=== PATIENT | male | born 1960 | race African-American/Black ===

== ENCOUNTER 2018-03-21 11:36 | Inpatient (IN) | payer OTHER ==
[2018-03-21 11:59] VITALS: BMI 29.0
--- NOTE | 2018-03-21 13:45 | HP ---
COWS - Scale Resting Pulse: 0= [place] 80 or Below Sweatin= No chills or Flushing Restless Observation: 0= Sits Still Pupil Size: 0= Normal to Room Light Bone or Joint Aches: 1= Mild Discomfort Runny Nose/ Eye Tearin= None GI Upset > 30mins: 0= None Tremor Observation: 1= Tremor [place], Not Seen Yawning Observation: 0= None Anxiety or Irritability: 2=Irritable/Anxious Goose Flesh Skin: 0=Smooth Skin COWS Score: 4 CIWA Score - CIWA Score Nausea/Vomitin-No Nausea/No Vomiting Muscle Tremors: None Anxiety: 4-Mod. Anxious/Guarded Agitation: 1-Slight > Activity Paroxysmal Sweats: No Perspiration Orientation: 0-Oriented Tacttile Disturbances: 0-None Auditory Disturbances: 0-None Visual Disturbances: 0-None Headache: 0-None Present CIWA-Ar Total Score: 5 Admission ROS [facility] - HPI Allergies/Adverse Reactions: Allergies Allergy/AdvReac Type Severity Reaction Status Date / Time Pork/Porcine Containing Allergy Severe Hives Verified 03/21/18 15:29 Products NKDA Allergy Uncoded 03/21/18 15:29 History of Present Illness: patient here requesting detox from etoh crack cocaine, pcpc, heroin etoh use : 2 pints/day vodka , since 1975 , prior episodes of sobriety 3 1/2 years , denies seizure h/o cocaine since age 19 , current daily use 200-300 $ /day , intermittent periods of sobriety PCP since age 36 , 2-3 bags /day heroin use : 1-2 bags/day since age 56 via inhalation , denies ivdu latest use yesterday morning . 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 lives alone utox + freddie , opi, bzo denies recent benzo use , latest detox 1 yr ago pmhx : chronic knee pain , htn , left ankle frx 1 yr ago , had a soft cast psych : bipolar d/o , mood d/o, anxiety , depression, SAD - has own psychiatrist at [facility] in [place] pshx : denies meds : motrin, lithium , depakote Exam Limitations: Physical Impairment - Ebola screening Have you traveled outside of the country in the last 21 days: No Have you had contact with anyone from an Ebola affected area: No Have you been sick,other than usual withdrawal symptoms: No Do you have a fever: No - Review of Systems Constitutional: No Symptoms Reported, Other EENT: reports: No Symptoms Reported Respiratory: reports: No Symptoms reported Cardiac: reports: No Symptoms Reported GI: reports: No Symptoms Reported : reports: No Symptoms Reported Musculoskeletal: reports: Joint Pain, Joint Swelling, Joint Stiffness Integumentary: reports: No Symptoms Reported Neuro: reports: Unsteady Gait, Dizziness, Other (fatigue) Endocrine: reports: No Symptoms Reported Psychiatric: reports: Judgement Intact, Orientated x3, Depressed, other (see HPI ) Other Systems: Reviewed and Negative Patient History - Smoking Cessation Smoking history: Current some day smoker Initiated information on smoking cessation: Yes 'Breaking Loose' booklet given: 03/21/18 - Substances Abused Heroin Route: Inhalation Frequency: Daily Amount used: 2-3 bags Age of first use: 56 Date of Last Use: 03/20/18 Cocaine Route: Smoking Frequency: Daily Amount used: $300-400 Age of first use: 19 Date of Last Use: 03/19/18 PCP Route: Smoking Frequency: Daily Amount used: $30 Age of first use: 36 Date of Last Use: 03/21/18 Alcohol-vodka Route: Oral Frequency: Daily Amount used: 2 pts. Age of first use: 14 Date of Last Use: 03/21/18 Family Disease History - Family Disease History Family Disease History: Diabetes: Father, Other: Mother (htn ), Sister (jordy ) Admission Physical Exam [facility] - Vital Signs Vital Signs: Vital Signs - 24 hr 03/21/18 11:56 Temperature 98.4 F Pulse Rate 65 Respiratory 20 Rate Blood Pressure 140/83 - Physical General Appearance: Yes: No Apparent Distress, Nourished, Appropriately Dressed , Mild Distress HEENTM: Yes: Within Normal Limits, EOMI, Hearing grossly Normal, Normal ENT Inspection, Normocephalic, Normal Voice, ERIC, Pharynx Normal, Tm's normal Respiratory: Yes: Within Normal Limits, Chest Non-Tender, Lungs Clear, Decreased Breath Sounds, No Respiratory Distress, No Accessory Muscle Use Cardiology: Yes: Within Normal Limits, Regular Rhythm, Regular Rate Abdominal: Yes: Within Normal Limits, Normal Bowel Sounds, Non Tender, Flat, Soft Musculoskeletal: Yes: Joint Stiffness, Other (gait antalgic, / unsteady , using cane for ambulation / balance , chronic knee pain) Extremities: Yes: Pedal Edema, Other (decreased AROM jonas knees) Neurological: Yes: Fully Oriented, Alert, Motor Strength 5/5, Depressed Affect Integumentary: Yes: Other (non- pitting edema jonas LE to knees) Cleared for Admission [facility] - Detox or Rehab [facility] Level of Care: Medically Managed Detox Regimen/Protocol: Methadone/Librium [facility] Breath Alcohol Content Breath Alcohol Content: 0 Urine Drug Screen - Results Drug Screen Negative: No Urine Drug Screen Results: FREDDIE-Cocaine, OPI-Opiates, BZO-Benzodiazepines
[2018-03-21] MEDS ORDERED: MAG HYDROX/AL HYDROX/SIMETH 30 ML UNIT-DOSE CUP PO PRN (14:04)
[2018-03-21] MEDS ORDERED: ACETAMINOPHEN 325 MG TABLET (FP) PO PRN (14:04)
[2018-03-21] MEDS ORDERED: MAGNESIUM CITRATE 300 ML BOTTLE PO PRN (14:04)
[2018-03-21] MEDS ORDERED: MAGNESIUM HYDROX 2400MG/30ML ORAL SUSPENSION 30 ML CUP PO PRN (14:04)
[2018-03-21] MEDS ORDERED: IBUPROFEN 400 MG TABLET (FP) PO PRN (14:04)
[2018-03-21] MEDS ORDERED: hydrOXYzine PAMOATE 25 MG CAPSULE (FP) PO PRN (15:10)
[2018-03-21] MEDS ORDERED: METHADONE HCL 10 MG TABLET (FOR DETOX USE ONLY) PO ONE (16:30)
[2018-03-21] MEDS ORDERED: chlordiazePOXIDE HCL 25 MG CAPSULE PO SCH (17:00)
[2018-03-21] MEDS ORDERED: chlordiazePOXIDE HCL 25 MG CAPSULE PO PRN (19:39)
[2018-03-21] MEDS ORDERED: MELATONIN 5 MG TABLETS PO PRN (22:00)
[2018-03-21] MEDS: THIAMINE HCL 100 MG TABLET (FP) PO SCH (22:24)
[2018-03-21] MEDS: chlordiazePOXIDE HCL 25 MG CAPSULE PO SCH (22:24)
[2018-03-22] MEDS: chlordiazePOXIDE HCL 25 MG CAPSULE PO SCH ×5 (00:19→22:27)
[2018-03-22 03:40] LABS: URINE APPEARANCE SLCLOUDY; URINE BILIRUBIN NEGATIVE (<2.0 mg/dL); URINE COLOR YELLOW; URINE GLUCOSE (UA) NEGATIVE (NEGATIVE); URINE KETONE NEGATIVE (NEGATIVE); URINE LEUK ESTERASE TRACE (NEGATIVE); URINE NITRITE NEGATIVE (NEGATIVE); URINE PROTEIN NEGATIVE (NEGATIVE)
[2018-03-22 03:55] LABS: EPI CELLS RARE /HPF (FEW); URINE MUCUS FEW
--- NOTE | 2018-03-22 08:01 | EKG ---
Test Reason : Blood Pressure : / mmHG Vent. Rate : 082 BPM Atrial Rate : 082 BPM P-R Int : 136 ms QRS Dur : 080 ms QT Int : 340 ms P-R-T Axes : 052 027 054 degrees QTc Int : 397 ms NORMAL SINUS RHYTHM NONSPECIFIC T WAVE ABNORMALITY ABNORMAL ECG NO PREVIOUS ECGS AVAILABLE Confirmed by PATRICE ELLIOTT MD ([id number]) on 03/22/2018 8:00:55 AM Referred By: Confirmed By:PATRICE ELLIOTT MD
[2018-03-22] MEDS ORDERED: METHADONE HCL 10 MG TABLET (FOR DETOX USE ONLY) PO SCH (10:00)
[2018-03-22 10:19] LABS: HEMOGLOBIN 12.4 GM/dL (11.7-16.9); MCH 27.9 pg (25.7-33.7); MCHC 32.6 g/dl (32.0-35.9); MEAN CELL VOLUME 85.6 fl (80-96); MEAN PLT VOLUME 9.7 fl (7.5-11.1); PLATELET COUNT 222 K/MM3 (134-434); RBC 4.44 M/mm3 (4.00-5.60); RDW 13.4 % (11.9-15.9); WHITE BLOOD COUNT 8.8 K/mm3 (4.0-10.0)
[2018-03-22] MEDS: PRENATAL VITAMINS W/ FOLIC ACID TABLET (FP) PO SCH (10:19)
[2018-03-22] MEDS: METHADONE HCL 5 MG TABLET (FOR DETOX USE ONLY) PO SCH (10:19)
[2018-03-22 10:27] LABS: ALBUMIN 3.5 g/dl (3.4-5.0); ALK PHOS 92 U/L (45-117); ANION GAP 8 MMOL/L (8-16); BILIRUBIN,TOTAL 0.4 mg/dL (0.2-1); BLOOD UREA NITROGEN 15 mg/dL (7-18); CALCIUM 9.6 mg/dL (8.5-10.1); CHLORIDE 105 mmol/L (98-107); CO2 27 mmol/L (21-32); CREATININE 0.9 mg/dL (0.55-1.3); GLUCOSE,RANDOM 86 mg/dL (74-106); POTASSIUM 4.4 mmol/L (3.5-5.1); SGOT/AST 31 U/L (15-37); SGPT/ALT 26 U/L (13-61); SODIUM 140 mmol/L (136-145); TOT PROT 7.7 g/dl (6.4-8.2)
--- NOTE | 2018-03-22 14:09 | PN ---
[facility] CIWA - CIWA Score Nausea/Vomitin-No Nausea/No Vomiting Muscle Tremors: 3 Anxiety: 5 Agitation: 3 Paroxysmal Sweats: 1-Minimal Palms Moist Orientation: 0-Oriented Tacttile Disturbances: 0-None Auditory Disturbances: 0-None Visual Disturbances: 0-None Headache: 0-None Present CIWA-Ar Total Score: 12 [facility] COWS - Scale Resting Pulse: 0= [place] 80 or Below Sweatin= Chills/Flushing Restless Observation: 3= Extraneous Movement Pupil Size: 0= Normal to Room Light Bone or Joint Aches: 1= Mild Discomfort Runny Nose/ Eye Tearin= None GI Upset > 30mins: 1= Stomach Cramp Tremor Observation of Outstretched Hands: 2= Slight Tremor Visible Yawning Observation: 1= 1-2x During Session Anxiety or Irritability: 2=Irritable/Anxious Goose Flesh Skin: 0=Smooth Skin COWS Score: 11 S Progress Note (SOAP) Subjective: ANXIETY, SWEATS, IRRITABILITY, UPSET STOMACH-DYSPEPSIA. Objective: 03/22/18 14:13 Vital Signs 03/22/18 03/22/18 06:21 10:22 Temperature 98.1 F 98.0 F Pulse Rate 64 75 Respiratory 20 18 Rate Blood Pressure 129/80 120/68 Laboratory Tests 03/21/18 03/22/18 03/22/18 23:18 06:00 06:00 WBC 8.8 RBC 4.44 Hgb 12.4 Hct 38.0 MCV 85.6 MCH 27.9 MCHC 32.6 RDW 13.4 Plt Count 222 MPV 9.7 Sodium 140 Potassium 4.4 Chloride 105 Carbon Dioxide 27 Anion Gap 8 BUN 15 Creatinine 0.9 Creat Clearance w eGFR > 60 Random Glucose 86 Calcium 9.6 Total Bilirubin 0.4 AST 31 ALT 26 Alkaline Phosphatase 92 Total Protein 7.7 Albumin 3.5 Urine Color Yellow Urine Appearance Slcloudy Urine pH 5.0 Ur Specific [place] 1.021 Urine Protein Negative Urine Glucose (UA) Negative Urine Ketones Negative Urine Blood Negative Urine Nitrite Negative Urine Bilirubin Negative Urine Urobilinogen 2.0 Ur Leukocyte Esterase Trace Urine WBC (Auto) 19 Urine RBC (Auto) 1 Ur Epithelial Cells Rare Urine Mucus Few LABS NOTED Assessment: 03/22/18 14:14 WITHDRAWAL SX Plan: CONTINUE DETOX
--- NOTE | 2018-03-22 17:02 | CONSULT ---
[facility] Psychiatric Consult - Data Date of interview: 03/22/18 Admission source: [facility] Identifying data: Readmission to [facility] for this 57 y/o AA male self- referred for detoxification treatment (alcohol,PCP,crack/cocaine,heroin dependence).Admitted to [address] [place] [address].Patient is. single,a father of five,domiciled and currently employed. Substance Abuse History: Confirmed by the patient in this interview.Details in current [facility] report : Smoking history: Current some day smoker. Initiated information on smoking cessation: Yes. 'Breaking Loose' booklet given: . - Substances Abused. Heroin. Route: Inhalation. Frequency: Daily. Amount used: 2-3 bags. Age of first use: 56. Date of Last Use: 03/20/18. Cocaine. Route: Smoking. Frequency: Daily. Amount used: $300-400. Age of first use: 19. Date of Last Use: 03/19/18. PCP. Route: Smoking. Frequency : Daily. Amount used: $30. Age of first use: 36. Date of Last Use: 03/21/18. Alcohol-vodka. Route: Oral. Frequency: Daily. Amount used: 2 pts. Age of first use: 14. Date of Last Use: 03/21/18 Medical History: Hypertension,chronic knee pain and past history of fracture of left ankle. A cane is noted at bedside. Psychiatric History: Patient reports a history of psychiatric hospitalizations.Years ago.No recall of names of institutions.Mr Pedraza indicates that he is currently seeing a psychiatrist, for medication management (depakote 1000 mg/day + lithium 900 mg/day), at the [facility] in [facility].Diagnosed with Bipolar Disorder.Patient denies history of suicide attempts. Physical/Sexual Abuse/Trauma History: Patient denies. Additional Comment: Urine Drug Screen Results: MILO-Cocaine, OPI-Opiates, BZO- Benzodiazepines.Noted. Mental Status Exam - Mental Status Exam Alert and Oriented to: Time, Place, Person Cognitive Function: Good Patient Appearance: Well Groomed Mood: Angry, Hostile, Withdrawn, Irritable Affect: Mood Congruent Patient Behavior: Fatigued, Cooperative (superficially cooperative) Speech Pattern: Clear Voice Loudness: Normal Thought Process: Goal Oriented Thought Disorder: Not Present Hallucinations: Denies Suicidal Ideation: Denies Homicidal Ideation: Denies Insight/Judgement: Poor Sleep: Poorly, Difficulty falling asleep Appetite: Good Muscle strength/Tone: Normal Gait/Station: Other (not observed ; in bed for entire interview ; cane is noted at bedside) Psychiatric Findings - Problem List ([place] 1, 2,3) (1) Alcohol dependence with uncomplicated withdrawal Current Visit: Yes Status: Acute (2) Cocaine dependence, uncomplicated Current Visit: Yes Status: Acute (3) Opioid dependence with withdrawal Current Visit: Yes Status: Acute (4) Substance induced mood disorder Current Visit: Yes Status: Acute (5) Nicotine dependence Current Visit: Yes Status: Acute (6) PCP dependence Current Visit: Yes Status: Acute Comment: Reported by the patient but toxicology screen is negative for that drug at time of this examination. (7) Bipolar disorder Current Visit: Yes Status: Chronic Comment: Self-report.On medications : valproate + lithium.Patient sees psychiatrist at [facility] in [facility]. (8) Insomnia Current Visit: Yes Status: Acute - Initial Treatment Plan Initial Treatment Plan: Psychoeducation.Sleep hygiene.Detoxification in progress.Group and supportive therapy.Medications : depakote 500 mg po hs.Side effects/benefits discussed with the patient.Insomnia is addressed with melatonin 5 mg po hs prn.[place] held until level becomes available.Medications confirmed by pharmacist at [facility] ([phone]) : refills for both medications issued on 02/20/18. Observation.
[2018-03-22] MEDS: THIAMINE HCL 100 MG TABLET (FP) PO SCH (22:26)
[2018-03-23] MEDS: chlordiazePOXIDE HCL 25 MG CAPSULE PO SCH ×2 (05:38→10:38)
[2018-03-23] MEDS: METHADONE HCL 5 MG TABLET (FOR DETOX USE ONLY) PO SCH (10:38)
[2018-03-23] MEDS: PRENATAL VITAMINS W/ FOLIC ACID TABLET (FP) PO SCH (10:38)
--- NOTE | 2018-03-23 11:08 | PN ---
[facility] CIWA - CIWA Score Nausea/Vomitin-No Nausea/No Vomiting Muscle Tremors: 3 Anxiety: 5 Agitation: 4-Moderately Restless Paroxysmal Sweats: No Perspiration Orientation: 0-Oriented Tacttile Disturbances: 0-None Auditory Disturbances: 0-None Visual Disturbances: 0-None Headache: 0-None Present CIWA-Ar Total Score: 12 S COWS - Scale Resting Pulse: 0= [place] 80 or Below Sweatin= Chills/Flushing Restless Observation: 3= Extraneous Movement Pupil Size: 0= Normal to Room Light Bone or Joint Aches: 0= None Runny Nose/ Eye Tearin= None GI Upset > 30mins: 0= None Tremor Observation of Outstretched Hands: 1= Tremor [place], Not Seen Yawning Observation: 0= None Anxiety or Irritability: 2=Irritable/Anxious Goose Flesh Skin: 0=Smooth Skin COWS Score: 7 S Progress Note (SOAP) Subjective: ANXIETY,IRRITABILITY, FATIGUE. Objective: 03/23/18 11:06 Vital Signs 03/23/18 03/23/18 03/23/18 03:30 06:04 09:14 Temperature 98.6 F 96.6 F L Pulse Rate 66 62 Respiratory 18 18 16 Rate Blood Pressure 119/75 107/58 L Laboratory Tests 03/21/18 03/22/18 03/22/18 23:18 06:00 06:00 WBC 8.8 RBC 4.44 Hgb 12.4 Hct 38.0 MCV 85.6 MCH 27.9 MCHC 32.6 RDW 13.4 Plt Count 222 MPV 9.7 Sodium 140 Potassium 4.4 Chloride 105 Carbon Dioxide 27 Anion Gap 8 BUN 15 Creatinine 0.9 Creat Clearance w eGFR > 60 Random Glucose 86 Calcium 9.6 Total Bilirubin 0.4 AST 31 ALT 26 Alkaline Phosphatase 92 Total Protein 7.7 Albumin 3.5 Urine Color Yellow Urine Appearance Slcloudy Urine pH 5.0 Ur Specific [place] 1.021 Urine Protein Negative Urine Glucose (UA) Negative Urine Ketones Negative Urine Blood Negative Urine Nitrite Negative Urine Bilirubin Negative Urine Urobilinogen 2.0 Ur Leukocyte Esterase Trace Urine WBC (Auto) 19 Urine RBC (Auto) 1 Ur Epithelial Cells Rare Urine Mucus Few RPR Titer 03/22/18 06:00 WBC RBC Hgb Hct MCV MCH MCHC RDW Plt Count MPV Sodium Potassium Chloride Carbon Dioxide Anion Gap BUN Creatinine Creat Clearance w eGFR Random Glucose Calcium Total Bilirubin AST ALT Alkaline Phosphatase Total Protein Albumin Urine Color Urine Appearance Urine pH Ur Specific [place] Urine Protein Urine Glucose (UA) Urine Ketones Urine Blood Urine Nitrite Urine Bilirubin Urine Urobilinogen Ur Leukocyte Esterase Urine WBC (Auto) Urine RBC (Auto) Ur Epithelial Cells Urine Mucus RPR Titer Nonreactive Assessment: 03/23/18 11:07 WITHDRAWAL SX Plan: CONTINUE DETOX REPEAT UA ON 03/22/18 UNCOLLECTED.
[2018-03-23] MEDS: chlordiazePOXIDE 5 MG CAPSULE PO SCH ×2 (17:57→22:05)
[2018-03-23] MEDS: THIAMINE HCL 100 MG TABLET (FP) PO SCH (22:05)
[2018-03-24] MEDS: chlordiazePOXIDE 5 MG CAPSULE PO SCH ×2 (05:17→10:50)
[2018-03-24] MEDS: PRENATAL VITAMINS W/ FOLIC ACID TABLET (FP) PO SCH (10:50)
--- NOTE | 2018-03-24 15:41 | PN ---
[facility] Progress Note (SOAP) Subjective: Chills, interrupted sleep Objective: 03/24/18 15:40 Last Vital Signs Temp Pulse Resp BP Pulse Ox 97.6 F 62 18 106/64 03/24/18 14:22 03/24/18 14:22 03/24/18 14:22 03/24/18 14:22 Laboratory Tests 03/21/18 03/22/18 03/22/18 23:18 06:00 06:00 WBC 8.8 RBC 4.44 Hgb 12.4 Hct 38.0 MCV 85.6 MCH 27.9 MCHC 32.6 RDW 13.4 Plt Count 222 MPV 9.7 Sodium 140 Potassium 4.4 Chloride 105 Carbon Dioxide 27 Anion Gap 8 BUN 15 Creatinine 0.9 Creat Clearance w eGFR > 60 Random Glucose 86 Calcium 9.6 Total Bilirubin 0.4 AST 31 ALT 26 Alkaline Phosphatase 92 Total Protein 7.7 Albumin 3.5 Urine Color Yellow Urine Appearance Slcloudy Urine pH 5.0 Ur Specific [place] 1.021 Urine Protein Negative Urine Glucose (UA) Negative Urine Ketones Negative Urine Blood Negative Urine Nitrite Negative Urine Bilirubin Negative Urine Urobilinogen 2.0 Ur Leukocyte Esterase Trace Urine WBC (Auto) 19 Urine RBC (Auto) 1 Ur Epithelial Cells Rare Urine Mucus Few Valproic Acid [place] RPR Titer 03/22/18 03/23/18 03/23/18 06:00 07:50 07:50 WBC RBC Hgb Hct MCV MCH MCHC RDW Plt Count MPV Sodium Potassium Chloride Carbon Dioxide Anion Gap BUN Creatinine Creat Clearance w eGFR Random Glucose Calcium Total Bilirubin AST ALT Alkaline Phosphatase Total Protein Albumin Urine Color Urine Appearance Urine pH Ur Specific [place] Urine Protein Urine Glucose (UA) Urine Ketones Urine Blood Urine Nitrite Urine Bilirubin Urine Urobilinogen Ur Leukocyte Esterase Urine WBC (Auto) Urine RBC (Auto) Ur Epithelial Cells Urine Mucus Valproic Acid < 3.0 L [place] < 0.1 L RPR Titer Nonreactive Labs reviewed Assessment: 03/24/18 15:40 Withdrawal symptoms Plan: Continue detox Encouraged PO water hydration
[2018-03-24] MEDS: chlordiazePOXIDE HCL 10 MG CAPSULE PO SCH ×2 (17:24→22:26)
[2018-03-24] MEDS: THIAMINE HCL 100 MG TABLET (FP) PO SCH (22:26)
[2018-03-25] MEDS: chlordiazePOXIDE HCL 10 MG CAPSULE PO SCH (06:33)
[2018-03-25 06:59] VITALS: BP 158/93; PULSE 56; TEMP 97.7
--- NOTE | 2018-03-25 10:47 | DS ---
[facility] Detox Discharge Summary Admission Date: 03/21/18 Discharge Date: 03/25/18 - History Present History: Alcohol Dependence, Cannabis Dependence, Opioid Dependence, Pcp Dependence Pertinent Past History: Denies - Physical Exam Results Vital Signs: Vital Signs Temperature 97.7 F 03/25/18 06:58 Pulse Rate 56 L 03/25/18 06:58 Respiratory Rate 03/25/18 06:58 Blood Pressure 158/93 03/25/18 06:58 O2 Sat by Pulse Oximetry (%) Pertinent Admission Physical Exam Findings: Withdrawal symptoms Laboratory Tests 03/21/18 03/22/18 03/22/18 23:18 06:00 06:00 WBC 8.8 RBC 4.44 Hgb 12.4 Hct 38.0 MCV 85.6 MCH 27.9 MCHC 32.6 RDW 13.4 Plt Count 222 MPV 9.7 Sodium 140 Potassium 4.4 Chloride 105 Carbon Dioxide 27 Anion Gap 8 BUN 15 Creatinine 0.9 Creat Clearance w eGFR > 60 Random Glucose 86 Calcium 9.6 Total Bilirubin 0.4 AST 31 ALT 26 Alkaline Phosphatase 92 Total Protein 7.7 Albumin 3.5 Urine Color Yellow Urine Appearance Slcloudy Urine pH 5.0 Ur Specific [place] 1.021 Urine Protein Negative Urine Glucose (UA) Negative Urine Ketones Negative Urine Blood Negative Urine Nitrite Negative Urine Bilirubin Negative Urine Urobilinogen 2.0 Ur Leukocyte Esterase Trace Urine WBC (Auto) 19 Urine RBC (Auto) 1 Ur Epithelial Cells Rare Urine Mucus Few Valproic Acid [place] RPR Titer 03/22/18 03/23/18 03/23/18 06:00 07:50 07:50 WBC RBC Hgb Hct MCV MCH MCHC RDW Plt Count MPV Sodium Potassium Chloride Carbon Dioxide Anion Gap BUN Creatinine Creat Clearance w eGFR Random Glucose Calcium Total Bilirubin AST ALT Alkaline Phosphatase Total Protein Albumin Urine Color Urine Appearance Urine pH Ur Specific [place] Urine Protein Urine Glucose (UA) Urine Ketones Urine Blood Urine Nitrite Urine Bilirubin Urine Urobilinogen Ur Leukocyte Esterase Urine WBC (Auto) Urine RBC (Auto) Ur Epithelial Cells Urine Mucus Valproic Acid < 3.0 L [place] < 0.1 L RPR Titer Nonreactive Labs reviewed - Treatment Hospital Course: Detox Protocol Followed, Detoxed Safely, Responded well, Discharged Condition Good - Medication Discharge Medications: Ambulatory Orders Unobtainable 03/21/18 - Diagnosis (1) Alcohol dependence with uncomplicated withdrawal Current Visit: Yes Status: Acute (2) Cocaine dependence, uncomplicated Current Visit: Yes Status: Chronic (3) Opioid dependence with withdrawal Current Visit: Yes Status: Acute (4) PCP dependence Current Visit: Yes Status: Chronic - AMA Did Patient Leave Against Medical Advice: No (F/U with your PCP within 1-2 weeks )
== END 2018-03-25 10:40 | disposition home or self-care (01) | DRG 773 ==
LOC: YASAS 11:36 → Y3N 16:09
PROC: HZ2ZZZZ Detoxification Services for Substance Abuse Treatment (ICD-10-PCS; principal; 2018-03-21)
DX: F11.23 Opioid dependence with withdrawal (principal); F13.230 Sedative, hypnotic or anxiolytic dependence with withdrawal, uncomplicated; F14.20 Cocaine dependence, uncomplicated; F16.20 Hallucinogen dependence, uncomplicated; F17.210 Nicotine dependence, cigarettes, uncomplicated; F19.24 Other psychoactive substance dependence with psychoactive substance-induced mood disorder; F31.9 Bipolar disorder, unspecified; G47.00 Insomnia, unspecified; R82.90 Unspecified abnormal findings in urine
CPT/HCPCS: 36415; 80053; 80164; 80178; 81003; 81015; 85027; 86593; 93005; 93010

== ENCOUNTER 2018-05-09 09:44 | Inpatient (IN) | payer OTHER ==
[2018-05-09 10:38] VITALS: BMI 31.7
--- NOTE | 2018-05-09 12:53 | HP ---
COWS - Scale Resting Pulse: 0= [place] 80 or Below Sweatin= Chills/Flushing Restless Observation: 1= Difficult to Sit Still Pupil Size: 0= Normal to Room Light Bone or Joint Aches: 0= None Runny Nose/ Eye Tearin= None GI Upset > 30mins: 0= None Tremor Observation: 0= None Yawning Observation: 0= None Anxiety or Irritability: 2=Irritable/Anxious Goose Flesh Skin: 0=Smooth Skin COWS Score: 4 CIWA Score Nausea/Vomitin-No Nausea/No Vomiting Muscle Tremors: None Anxiety: 1-Mildly Anxious Agitation: 0-Normal Activity Paroxysmal Sweats: 1-Minimal Palms Moist Orientation: 0-Oriented Tacttile Disturbances: 0-None Auditory Disturbances: 0-None Visual Disturbances: 0-None Headache: 0-None Present CIWA-Ar Total Score: 2 - Admission Criteria [facility] Guidelines: Admission for Medically Managed Detox: Requires at least one of the followin. CIWA greater than 12 2. Seizures within the past 24 hours 3. Delirium tremens within the past 24 hours 4. Hallucinations within the past 24 hours 5. Acute intervention needed for co occurring medical disorder 6. Acute intervention needed for co occurring psychiatric disorder 7. Severe withdrawal that cannot be handled at a lower level of care (continued vomiting, continued diarrhea, abnormal vital signs) requiring intravenous medication and/or fluids 8. Patient presents the following: None of the above Admission Criteria Met: Admission criteria not met Admission ROS [facility] Allergies/Adverse Reactions: Allergies Allergy/AdvReac Type Severity Reaction Status Date / Time Pork/Porcine Containing Allergy Severe Hives Verified 05/09/18 11:11 Products No Known Drug Allergies Allergy Verified 05/09/18 11:11 NKDA Allergy Uncoded 05/09/18 11:11 History of Present Illness: patient here requesting detox from cocaine, alcohol and heroin , denies current withdrawal symptoms . heroin use : 3-4 bags/day x 1 year , denies IVDU use , latest use yesterday afternoon cocaine : 400$ / day denies ivdu xsince age 26 ETOH : 3-4 pints / day since age 14 , starts drinking around 11 am , until he finishes cocaine , denies tremors, seizures , blackouts, falls . tobacco : 2 cigs /day PMhx : knee pain , HTN meds : enalapril has own PCP , did not bring meds pshx : denies psych : denies Patient is very belligerant and verbally aggressive towards continuity writer throughout interview : " I was here in March , the information is there , I don't have to answer these questions all over again " , raising voice , standing, pacing very agitated in nursing station area, yelling at staff. per med review, h/o asthma . No prior record found by name search . - Ebola screening Have you traveled outside of the country in the last 21 days: No Have you had contact with anyone from an Ebola affected area: No Have you been sick,other than usual withdrawal symptoms: No Patient History - Patient Medical History Hx Asthma: No Hx Chronic Obstructive Pulmonary Disease (COPD): No Hx Cardiac Disorders: No Hx Hypertension: Yes Hx Seizures: No Hx Diabetes: No Hx Gastrointestinal Disorders: No Hx Genitourinary Disorders: No Hx Sexually Transmitted Disorders: No Hx Renal Disease (ESRD): No Hx Depression: No Hx Suicide Attempt: No Hx Schizophrenia: No - Patient Surgical History Past Surgical History: No Hx Neurologic Surgery: No Hx Cataract Extraction: No Hx Cardiac Surgery: No Hx Lung Surgery: No Hx Breast Surgery: No Hx Breast Biopsy: No Hx Abdominal Surgery: No Hx Appendectomy: No Hx Cholecystectomy: No Hx Genitourinary Surgery: No Hx Section: No Hx Orthopedic Surgery: No Anesthesia Reaction: No - PPD History Previous Implant?: Yes Documented Results: Negative w/proof Implanted On Prior [facility] Admission?: Yes Date: 03/23/18 Results: 0 mm - Smoking Cessation Smoking history: Current some day smoker Have you smoked in the past 12 months: Yes Aproximately how many cigarettes per day: 3 Hx Chewing Tobacco Use: No Initiated information on smoking cessation: No - Substances Abused Heroin Route: Inhalation Frequency: 3-6 times per week Amount used: 3-4 bags Age of first use: 56 Date of Last Use: 05/08/18 Crack Route: Smoking Frequency: Daily Amount used: $300-400 Age of first use: 36 Date of Last Use: 05/08/18 Alcohol-vodka Route: Oral Frequency: Daily Amount used: 2 pts. Age of first use: 14 Date of Last Use: 05/08/18 Family Disease History - Family Disease History Family Disease History: Diabetes: Father, Other: Mother (htn ), Sister (jordy ) Admission Physical Exam [facility] - Vital Signs Vital Signs: Vital Signs - 24 hr 05/09/18 10:32 Temperature 97.1 F L Pulse Rate 78 Respiratory 18 Rate Blood Pressure 142/71 - Physical General Appearance: Yes: Moderate Distress, Alcohol on Breath, Other ([place] 0.002 ) HEENTM: Yes: EOMI, Hearing grossly Normal, Normocephalic, Normal Voice Respiratory: Yes: Chest Non-Tender, Lungs Clear, Normal Breath Sounds Neck: Yes: No masses,lesions,Nodules, Trachea in good position Breast: Yes: Breast Exam Deferred Cardiology: Yes: Regular Rhythm, Regular Rate, S1, S2 Abdominal: Yes: Normal Bowel Sounds, Soft Genitourinary: Yes: Within Normal Limits Back: Yes: Normal Inspection Musculoskeletal: Yes: Joint Stiffness, Other (antalgic gait - reports chronic knee pain) Extremities: Yes: Normal Capillary Refill, Non-Tender, Tremors Neurological: Yes: Fully Oriented, Motor Strength 5/5 - Diagnostic (1) Opioid dependence Current Visit: Yes Status: Acute Qualifiers: Substance use status: uncomplicated Qualified Code(s): F11.20 - Opioid dependence, uncomplicated (2) Alcohol dependence with uncomplicated withdrawal Current Visit: No Status: Acute (3) Cocaine dependence, uncomplicated Current Visit: No Status: Chronic S Breath Alcohol Content Breath Alcohol Content: 0.2 Urine Drug Screen - Results Drug Screen Negative: No Urine Drug Screen Results: MILO-Cocaine, OPI-Opiates, FEN-Fentanyl
[2018-05-09] MEDS ORDERED: MAG HYDROX/AL HYDROX/SIMETH 30 ML UNIT-DOSE CUP PO PRN (12:58)
[2018-05-09] MEDS ORDERED: ACETAMINOPHEN 325 MG TABLET (FP) PO PRN (12:58)
[2018-05-09] MEDS ORDERED: MAGNESIUM CITRATE 300 ML BOTTLE PO PRN (12:58)
[2018-05-09] MEDS ORDERED: MENTHOL/PHENOL 1 EACH UD MM PRN (12:58)
[2018-05-09] MEDS ORDERED: MAGNESIUM HYDROX 2400MG/30ML ORAL SUSPENSION 30 ML CUP PO PRN (12:58)
[2018-05-09] MEDS ORDERED: P-EPHED 60MG/TRIPROLIDI 2.5MG TABLET PO PRN (12:58)
[2018-05-09] MEDS ORDERED: diazePAM 5 MG TABLET PO PRN (12:58)
[2018-05-09] MEDS ORDERED: guaiFENesin/D-METHORPHAN HB 10 ML UNIT-DOSE CUPS PO PRN (12:58)
[2018-05-09] MEDS ORDERED: diazePAM 5 MG TABLET PO ONE (14:00)
[2018-05-09] MEDS: IBUPROFEN 400 MG TABLET (FP) PO PRN (15:25)
[2018-05-09 18:07] LABS: URINE APPEARANCE TURBID; URINE BILIRUBIN NEGATIVE (<2.0 mg/dL); URINE COLOR DKYELLOW; URINE GLUCOSE (UA) NEGATIVE (NEGATIVE); URINE KETONE NEGATIVE (NEGATIVE); URINE LEUK ESTERASE NEGATIVE (NEGATIVE); URINE NITRITE NEGATIVE (NEGATIVE); URINE PROTEIN 2+ (NEGATIVE); URINE UROBILINOGEN NEGATIVE mg/dL (0.2-1.0)
[2018-05-09] MEDS ORDERED: ALBUTEROL SO4 0.083% IH SOL 2.5 MG/3 ML VIAL.NEB. NEB PRN (18:08)
[2018-05-09 18:34] LABS: EPI CELLS RARE /HPF (FEW); URINE MUCUS MODERATE
[2018-05-09] MEDS ORDERED: MELATONIN 5 MG TABLETS PO PRN (22:00)
[2018-05-09] MEDS: THIAMINE HCL 100 MG TABLET (FP) PO SCH (22:26)
[2018-05-09] MEDS: diazePAM 5 MG TABLET PO SCH (22:26)
[2018-05-09] MEDS ORDERED: METHADONE HCL 10 MG TABLET (FOR DETOX USE ONLY) PO ONE (23:00)
[2018-05-10] MEDS: diazePAM 5 MG TABLET PO SCH ×3 (06:30→22:34)
[2018-05-10] MEDS: IBUPROFEN 400 MG TABLET (FP) PO PRN (06:31)
--- NOTE | 2018-05-10 09:39 | CONSULT ---
[facility] Psychiatric Consult - Data Date of interview: 05/10/18 Identifying data: Patient approached bedside for psychiatric consultation. Pt. stated, " I'm tired i don't need to speak to you." Nursing staff informed.
[2018-05-10] MEDS ORDERED: METHADONE HCL 5 MG TABLET (FOR DETOX USE ONLY) PO SCH (10:00)
[2018-05-10 10:13] LABS: HEMATOCRIT 40.5 % (35.4-49); HEMOGLOBIN 13.3 GM/dL (11.7-16.9); MCH 27.7 pg (25.7-33.7); MCHC 32.8 g/dl (32.0-35.9); MEAN CELL VOLUME 84.4 fl (80-96); MEAN PLT VOLUME 9.4 fl (7.5-11.1); PLATELET COUNT 201 K/MM3 (134-434); RDW 15.3 % (11.9-15.9); WHITE BLOOD COUNT 13.1 K/mm3 (4.0-10.0)
[2018-05-10] MEDS: PRENATAL VITAMINS W/ FOLIC ACID TABLET (FP) PO SCH (11:10)
[2018-05-10 11:11] LABS: ALBUMIN 4.1 g/dl (3.4-5.0); ALK PHOS 112 U/L (45-117); ANION GAP 13 MMOL/L (8-16); BILIRUBIN,TOTAL 0.6 mg/dL (0.2-1); BLOOD UREA NITROGEN 22 mg/dL (7-18); CHLORIDE 100 mmol/L (98-107); CO2 23 mmol/L (21-32); CREATININE 1.1 mg/dL (0.55-1.3); GLUCOSE,RANDOM 87 mg/dL (74-106); POTASSIUM 4.2 mmol/L (3.5-5.1); SGOT/AST 117 U/L (15-37); SGPT/ALT 49 U/L (13-61); SODIUM 136 mmol/L (136-145); TOT PROT 8.1 g/dl (6.4-8.2)
--- NOTE | 2018-05-10 11:51 | PN ---
[facility] CIWA - CIWA Score Nausea/Vomitin-No Nausea/No Vomiting Muscle Tremors: 3 Anxiety: 3 Agitation: 3 Paroxysmal Sweats: 3 Orientation: 0-Oriented Tacttile Disturbances: 0-None Auditory Disturbances: 0-None Visual Disturbances: 0-None Headache: 0-None Present CIWA-Ar Total Score: 12 BHS COWS - Scale Resting Pulse: 0= [place] 80 or Below Sweatin= Chills/Flushing Restless Observation: 1= Difficult to Sit Still Pupil Size: 0= Normal to Room Light Bone or Joint Aches: 1= Mild Discomfort Runny Nose/ Eye Tearin= Nasal Congestion GI Upset > 30mins: 0= None Tremor Observation of Outstretched Hands: 2= Slight Tremor Visible Yawning Observation: 2= >3x During Session Anxiety or Irritability: 2=Irritable/Anxious Goose Flesh Skin: 0=Smooth Skin COWS Score: 10 S Progress Note (SOAP) Subjective: agitation anxiety sweats chills at night body aches Objective: 05/10/18 11:51 Vital Signs Temperature 98.1 F 05/10/18 09:34 Pulse Rate 67 05/10/18 09:34 Respiratory Rate 18 05/10/18 09:34 Blood Pressure 112/58 L 05/10/18 09:34 O2 Sat by Pulse Oximetry (%) Laboratory Tests 05/09/18 05/10/18 05/10/18 15:48 06:00 06:00 WBC 13.1 H RBC 4.80 Hgb 13.3 Hct 40.5 MCV 84.4 MCH 27.7 MCHC 32.8 RDW 15.3 D Plt Count 201 MPV 9.4 Sodium 136 Potassium 4.2 Chloride 100 Carbon Dioxide 23 Anion Gap 13 BUN 22 H Creatinine 1.1 Creat Clearance w eGFR > 60 Random Glucose 87 Calcium 9.0 Total Bilirubin 0.6 AST 117 H ALT 49 Alkaline Phosphatase 112 Total Protein 8.1 Albumin 4.1 Urine Color Dkyellow Urine Appearance Turbid Urine pH 5.0 Ur Specific [place] 1.028 Urine Protein 2+ H Urine Glucose (UA) Negative Urine Ketones Negative Urine Blood Negative Urine Nitrite Negative Urine Bilirubin Negative Urine Urobilinogen Negative Ur Leukocyte Esterase Negative Urine WBC (Auto) 30 Urine RBC (Auto) 1 Ur Epithelial Cells Rare Urine Mucus Moderate RPR Titer 05/10/18 06:00 WBC RBC Hgb Hct MCV MCH MCHC RDW Plt Count MPV Sodium Potassium Chloride Carbon Dioxide Anion Gap BUN Creatinine Creat Clearance w eGFR Random Glucose Calcium Total Bilirubin AST ALT Alkaline Phosphatase Total Protein Albumin Urine Color Urine Appearance Urine pH Ur Specific [place] Urine Protein Urine Glucose (UA) Urine Ketones Urine Blood Urine Nitrite Urine Bilirubin Urine Urobilinogen Ur Leukocyte Esterase Urine WBC (Auto) Urine RBC (Auto) Ur Epithelial Cells Urine Mucus RPR Titer Nonreactive aaox3 ambulating no acute distress Assessment: 05/10/18 11:51 withdrawal sx Plan: continue detox increase fluids
--- NOTE | 2018-05-10 13:48 | PN ---
[facility] Progress Note Note: pt states he only dabbles with very little heroin 3 bags and has not withdrawals from any opioids. His only withdrawals is from alcohol. Pt was educated regarding the order for methadone will be d/c and pt states he will be ok. Pt refusing to take anymore methadone. order is d/c.
[2018-05-10] MEDS: ENALAPRIL MALEATE 10 MG TABLET (FP) PO SCH (14:33)
--- NOTE | 2018-05-10 14:52 | EKG ---
Test Reason : Blood Pressure : / mmHG Vent. Rate : 071 BPM Atrial Rate : 071 BPM P-R Int : 138 ms QRS Dur : 086 ms QT Int : 392 ms P-R-T Axes : 023 005 012 degrees QTc Int : 425 ms NORMAL SINUS RHYTHM NORMAL ECG Confirmed by HIEU CARREON MD ([id number]) on 05/10/2018 2:52:11 PM Referred By: Confirmed By:HIEU CARREON MD
[2018-05-10] MEDS: THIAMINE HCL 100 MG TABLET (FP) PO SCH (22:34)
[2018-05-11] MEDS ORDERED: METHADONE HCL 10 MG TABLET (FOR DETOX USE ONLY) PO SCH (10:00)
[2018-05-11] MEDS ORDERED: METHADONE HCL 5 MG TABLET (FOR DETOX USE ONLY) PO SCH (10:00)
[2018-05-11] MEDS: PRENATAL VITAMINS W/ FOLIC ACID TABLET (FP) PO SCH (10:55)
[2018-05-11] MEDS: diazePAM 5 MG TABLET PO SCH ×2 (10:55→22:45)
[2018-05-11] MEDS: ENALAPRIL MALEATE 10 MG TABLET (FP) PO SCH (10:55)
--- NOTE | 2018-05-11 14:38 | PN ---
[facility] CIWA - CIWA Score Nausea/Vomitin-No Nausea/No Vomiting Muscle Tremors: None Anxiety: 3 Agitation: 3 Paroxysmal Sweats: 2 Orientation: 0-Oriented Tacttile Disturbances: 0-None Auditory Disturbances: 0-None Visual Disturbances: 0-None Headache: 0-None Present CIWA-Ar Total Score: 8 S COWS - Scale Resting Pulse: 0= [place] 80 or Below Sweatin=Flushed/Facial Moisture Restless Observation: 1= Difficult to Sit Still Pupil Size: 0= Normal to Room Light Bone or Joint Aches: 0= None Runny Nose/ Eye Tearin= None GI Upset > 30mins: 0= None Tremor Observation of Outstretched Hands: 0= None Yawning Observation: 1= 1-2x During Session Anxiety or Irritability: 2=Irritable/Anxious Goose Flesh Skin: 0=Smooth Skin COWS Score: 6 S Progress Note (SOAP) Subjective: PATIENT C/O SWEATING, ANXIETY AND INTERMITTENT RESTLESSNESS. Objective: 05/11/18 14:36 Laboratory Tests 05/09/18 05/10/18 05/10/18 15:48 06:00 06:00 WBC 13.1 H RBC 4.80 Hgb 13.3 Hct 40.5 MCV 84.4 MCH 27.7 MCHC 32.8 RDW 15.3 D Plt Count 201 MPV 9.4 Sodium 136 Potassium 4.2 Chloride 100 Carbon Dioxide 23 Anion Gap 13 BUN 22 H Creatinine 1.1 Creat Clearance w eGFR > 60 Random Glucose 87 Calcium 9.0 Total Bilirubin 0.6 AST 117 H ALT 49 Alkaline Phosphatase 112 Total Protein 8.1 Albumin 4.1 Urine Color Dkyellow Urine Appearance Turbid Urine pH 5.0 Ur Specific [place] 1.028 Urine Protein 2+ H Urine Glucose (UA) Negative Urine Ketones Negative Urine Blood Negative Urine Nitrite Negative Urine Bilirubin Negative Urine Urobilinogen Negative Ur Leukocyte Esterase Negative Urine WBC (Auto) 30 Urine RBC (Auto) 1 Ur Epithelial Cells Rare Urine Mucus Moderate RPR Titer 05/10/18 06:00 WBC RBC Hgb Hct MCV MCH MCHC RDW Plt Count MPV Sodium Potassium Chloride Carbon Dioxide Anion Gap BUN Creatinine Creat Clearance w eGFR Random Glucose Calcium Total Bilirubin AST ALT Alkaline Phosphatase Total Protein Albumin Urine Color Urine Appearance Urine pH Ur Specific [place] Urine Protein Urine Glucose (UA) Urine Ketones Urine Blood Urine Nitrite Urine Bilirubin Urine Urobilinogen Ur Leukocyte Esterase Urine WBC (Auto) Urine RBC (Auto) Ur Epithelial Cells Urine Mucus RPR Titer Nonreactive PE: SKIN WARM AND MOIST ALERT AND ORIENTED X 3 AMB AD RONN EXT FULL ROM Assessment: 05/11/18 14:37 WITHDRAWAL SX Plan: CONTINUE DETOX ENCOURAGE ORAL FLUIDS CONTINUE TO MONITOR REPEAT UA AND CBC
[2018-05-11] MEDS: THIAMINE HCL 100 MG TABLET (FP) PO SCH (22:45)
[2018-05-12] MEDS ORDERED: METHADONE HCL 5 MG TABLET (FOR DETOX USE ONLY) PO SCH (06:00)
[2018-05-12 10:39] LABS: URINE APPEARANCE SLCLOUDY; URINE BILIRUBIN NEGATIVE (<2.0 mg/dL); URINE COLOR YELLOW; URINE GLUCOSE (UA) NEGATIVE (NEGATIVE); URINE KETONE TRACE (NEGATIVE); URINE LEUK ESTERASE TRACE (NEGATIVE); URINE NITRITE NEGATIVE (NEGATIVE); URINE PROTEIN 1+ (NEGATIVE); URINE UROBILINOGEN 4.0 E.U/dl mg/dL (0.2-1.0)
[2018-05-12] MEDS: diazePAM 5 MG TABLET PO SCH ×2 (10:47→22:43)
[2018-05-12] MEDS: ENALAPRIL MALEATE 10 MG TABLET (FP) PO SCH (10:47)
[2018-05-12] MEDS: PRENATAL VITAMINS W/ FOLIC ACID TABLET (FP) PO SCH (10:47)
[2018-05-12 10:52] LABS: EPI CELLS FEW /HPF (FEW); URINE MUCUS MANY
[2018-05-12 11:03] LABS: BASO % 0.7 % (0-2.0); EOS % 1.8 % (0-4.5); HEMATOCRIT 40.3 % (35.4-49); HEMOGLOBIN 13.2 GM/dL (11.7-16.9); LYMPH % 26.9 % (8-40); MCH 27.5 pg (25.7-33.7); MCHC 32.6 g/dl (32.0-35.9); MEAN CELL VOLUME 84.4 fl (80-96); MEAN PLT VOLUME 8.8 fl (7.5-11.1); MONO % 5.1 % (3.8-10.2); NEUT % 65.5 % (42.8-82.8); PLATELET COUNT 196 K/MM3 (134-434); RBC 4.78 M/mm3 (4.00-5.60); RDW 14.4 % (11.9-15.9); WHITE BLOOD COUNT 9.4 K/mm3 (4.0-10.0)
--- NOTE | 2018-05-12 13:31 | PN ---
S Progress Note (SOAP) Subjective: feeling better no sweat less tremor sleep better at night patient admitted on 05/09/18 for alcohol detox third day alcohol detox doing well eat well sleep well history of bipolar treated with lithium none compliance with medication Objective: 05/12/18 13:34 Vital Signs Temperature 97.9 F 05/12/18 09:42 Pulse Rate 63 05/12/18 09:42 Respiratory Rate 16 05/12/18 09:42 Blood Pressure 124/59 L 05/12/18 09:42 O2 Sat by Pulse Oximetry (%) Laboratory Last Values WBC 9.4 K/mm3 (4.0-10.0) 05/12/18 07:30 RBC 4.78 M/mm3 (4.00-5.60) 05/12/18 07:30 Hgb 13.2 GM/dL (11.7-16.9) 05/12/18 07:30 Hct 40.3 % (35.4-49) 05/12/18 07:30 MCV 84.4 fl (80-96) 05/12/18 07:30 MCH 27.5 pg (25.7-33.7) 05/12/18 07:30 MCHC 32.6 g/dl (32.0-35.9) 05/12/18 07:30 RDW 14.4 % (11.9-15.9) 05/12/18 07:30 Plt Count 196 K/MM3 (134-434) 05/12/18 07:30 MPV 8.8 fl (7.5-11.1) 05/12/18 07:30 Absolute Neuts (auto) 6.1 K/mm3 (1.5-8.0) 05/12/18 07:30 Neutrophils % 65.5 % (42.8-82.8) 05/12/18 07:30 Lymphocytes % 26.9 % (8-40) 05/12/18 07:30 Monocytes % 5.1 % (3.8-10.2) 05/12/18 07:30 Eosinophils % 1.8 % (0-4.5) 05/12/18 07:30 Basophils % 0.7 % (0-2.0) 05/12/18 07:30 Nucleated RBC % 0 % (0-0) 05/12/18 07:30 Sodium 136 mmol/L (136-145) 05/10/18 06:00 Potassium 4.2 mmol/L (3.5-5.1) 05/10/18 06:00 Chloride 100 mmol/L (98-107) 05/10/18 06:00 Carbon Dioxide 23 mmol/L (21-32) 05/10/18 06:00 Anion Gap 13 MMOL/L (8-16) 05/10/18 06:00 BUN 22 mg/dL (7-18) H 05/10/18 06:00 Creatinine 1.1 mg/dL (0.55-1.3) 05/10/18 06:00 Creat Clearance w eGFR > 60 (>60) 05/10/18 06:00 Random Glucose 87 mg/dL (74-106) 05/10/18 06:00 Calcium 9.0 mg/dL (8.5-10.1) 05/10/18 06:00 Total Bilirubin 0.6 mg/dL (0.2-1) 05/10/18 06:00 AST 117 U/L (15-37) H 05/10/18 06:00 ALT 49 U/L (13-61) 05/10/18 06:00 Alkaline Phosphatase 112 U/L (45-117) 05/10/18 06:00 Total Protein 8.1 g/dl (6.4-8.2) 05/10/18 06:00 Albumin 4.1 g/dl (3.4-5.0) 05/10/18 06:00 Urine Color Yellow 05/12/18 07:30 Urine Appearance Slcloudy 05/12/18 07:30 Urine pH 5.0 (5.0-8.0) 05/12/18 07:30 Ur Specific [place] 1.030 (1.010-1.035) 05/12/18 07:30 Urine Protein 1+ (NEGATIVE) H 05/12/18 07:30 Urine Glucose (UA) Negative (NEGATIVE) 05/12/18 07:30 Urine Ketones Trace (NEGATIVE) H 05/12/18 07:30 Urine Blood Negative (NEGATIVE) 05/12/18 07:30 Urine Nitrite Negative (NEGATIVE) 05/12/18 07:30 Urine Bilirubin Negative (<2.0 mg/dL) 05/12/18 07:30 Urine Urobilinogen 4.0 e.u/dl mg/dL (0.2-1.0) 05/12/18 07:30 Ur Leukocyte Esterase Trace (NEGATIVE) 05/12/18 07:30 Urine WBC (Auto) 15 /hpf (3-5) 05/12/18 07:30 Urine RBC (Auto) 3 /hpf (0-3) 05/12/18 07:30 Ur Epithelial Cells Few /HPF (FEW) 05/12/18 07:30 Urine Mucus Many 05/12/18 07:30 RPR Titer Nonreactive (NONREACTIVE) 05/10/18 06:00 lab noted Assessment: 05/12/18 13:35 mild withdrawal sx Plan: medically supervised detox health teaching on hypertension related alcoholism and risks of injury due to bipolar disorder patient avoid conversation with the travel writer
[2018-05-12] MEDS: THIAMINE HCL 100 MG TABLET (FP) PO SCH (22:43)
--- NOTE | 2018-05-13 08:41 | DS ---
[facility] Detox Discharge Summary Admission Date: 05/09/18 Discharge Date: 05/13/18 - History Present History: Alcohol Dependence, Cocaine Dependence, Opioid Dependence - Physical Exam Results Vital Signs: Vital Signs Temperature 97.3 F L 05/13/18 07:32 Pulse Rate 58 L 05/13/18 07:32 Respiratory Rate 18 05/13/18 07:32 Blood Pressure 134/77 05/13/18 07:32 O2 Sat by Pulse Oximetry (%) - Treatment Hospital Course: Detox Protocol Followed, Detoxed Safely, Responded well, Discharged Condition Good, Rehab Referral Accepted - Medication Discharge Medications: Ambulatory Orders Enalapril Maleate [Vasotec] 20 mg PO DAILY #14 tablet 05/12/18 - Diagnosis (1) Hypertension Current Visit: Yes Status: Chronic Qualifiers: Hypertension type: essential hypertension Qualified Code(s): I10 - Essential (primary) hypertension (2) Opioid dependence Current Visit: Yes Status: Acute Qualifiers: Substance use status: uncomplicated Qualified Code(s): F11.20 - Opioid dependence, uncomplicated (3) Abnormal finding on urinalysis Current Visit: No Status: Acute (4) Alcohol dependence with uncomplicated withdrawal Current Visit: Yes Status: Chronic (5) Insomnia Current Visit: No Status: Acute (6) Nicotine dependence Current Visit: Yes Status: Chronic Qualifiers: Nicotine product type: cigarettes Substance use status: uncomplicated Qualified Code(s): F17.210 - Nicotine dependence, cigarettes, uncomplicated (7) Opioid dependence with withdrawal Current Visit: Yes Status: Chronic (8) Substance induced mood disorder Current Visit: No Status: Acute (9) Bipolar disorder Current Visit: No Status: Chronic (10) Cocaine dependence, uncomplicated Current Visit: Yes Status: Chronic (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
[2018-05-13] MEDS ORDERED: diazePAM 5 MG TABLET PO SCH (10:00)
[2018-05-13] MEDS: ENALAPRIL MALEATE 10 MG TABLET (FP) PO SCH (10:31)
[2018-05-13] MEDS: PRENATAL VITAMINS W/ FOLIC ACID TABLET (FP) PO SCH (10:31)
[2018-05-13] MEDS: THIAMINE HCL 100 MG TABLET (FP) PO SCH (23:14)
[2018-05-14 02:52] LABS: URINE APPEARANCE CLEAR; URINE BILIRUBIN NEGATIVE (<2.0 mg/dL); URINE COLOR LTYELLOW; URINE GLUCOSE (UA) NEGATIVE (NEGATIVE); URINE KETONE NEGATIVE (NEGATIVE); URINE LEUK ESTERASE NEGATIVE (NEGATIVE); URINE NITRITE NEGATIVE (NEGATIVE); URINE PROTEIN NEGATIVE (NEGATIVE); URINE UROBILINOGEN NEGATIVE mg/dL (0.2-1.0)
--- NOTE | 2018-05-14 08:56 | DS ---
[facility] Detox Discharge Summary Admission Date: 05/09/18 Discharge Date: 05/14/18 - History Present History: Alcohol Dependence, Cocaine Dependence, Opioid Dependence, Pcp Dependence - Physical Exam Results Vital Signs: Vital Signs Temperature 97.9 F 05/14/18 06:49 Pulse Rate 57 L 05/14/18 06:49 Respiratory Rate 05/14/18 06:49 Blood Pressure 142/85 05/14/18 06:49 O2 Sat by Pulse Oximetry (%) - Treatment Hospital Course: Detox Protocol Followed, Detoxed Safely, Responded well, Discharged Condition Good, Rehab Referral Accepted - Medication Discharge Medications: Ambulatory Orders Enalapril Maleate [Vasotec] 20 mg PO DAILY #14 tablet 05/12/18 - Diagnosis (1) Hypertension Current Visit: Yes Status: Chronic Qualifiers: Hypertension type: essential hypertension Qualified Code(s): I10 - Essential (primary) hypertension (2) Opioid dependence Current Visit: Yes Status: Acute Qualifiers: Substance use status: uncomplicated Qualified Code(s): F11.20 - Opioid dependence, uncomplicated (3) Abnormal finding on urinalysis Current Visit: No Status: Acute (4) Alcohol dependence with uncomplicated withdrawal Current Visit: Yes Status: Chronic (5) Insomnia Current Visit: No Status: Acute (6) Nicotine dependence Current Visit: Yes Status: Chronic Qualifiers: Nicotine product type: cigarettes Substance use status: uncomplicated Qualified Code(s): F17.210 - Nicotine dependence, cigarettes, uncomplicated (7) Opioid dependence with withdrawal Current Visit: Yes Status: Chronic (8) Substance induced mood disorder Current Visit: No Status: Acute (9) Bipolar disorder Current Visit: No Status: Chronic (10) Cocaine dependence, uncomplicated Current Visit: Yes Status: Chronic (11) PCP dependence Current Visit: Yes Status: Chronic - AMA Did Patient Leave Against Medical Advice: No (referred to rehab)
[2018-05-14] MEDS: PRENATAL VITAMINS W/ FOLIC ACID TABLET (FP) PO SCH (10:11)
[2018-05-14] MEDS: ENALAPRIL MALEATE 10 MG TABLET (FP) PO SCH (10:11)
[2018-05-14 14:22] VITALS: BP 130/81; PULSE 69; TEMP 98.1
== END 2018-05-14 14:37 | disposition other institution (70) | DRG 773 ==
LOC: YASAS 09:44 → Y6N 13:46
PROC: HZ2ZZZZ Detoxification Services for Substance Abuse Treatment (ICD-10-PCS; principal; 2018-05-09)
DX: F11.20 Opioid dependence, uncomplicated (principal); F10.230 Alcohol dependence with withdrawal, uncomplicated; F16.20 Hallucinogen dependence, uncomplicated; F14.20 Cocaine dependence, uncomplicated; F17.210 Nicotine dependence, cigarettes, uncomplicated; F19.24 Other psychoactive substance dependence with psychoactive substance-induced mood disorder; F31.9 Bipolar disorder, unspecified; I10 Essential (primary) hypertension; R82.90 Unspecified abnormal findings in urine; G47.00 Insomnia, unspecified
CPT/HCPCS: 36415; 80053; 81003; 81015; 85025; 85027; 86593; 93005; 93010

== ENCOUNTER 2018-05-14 14:58 | Inpatient (IN) | payer OTHER ==
[2018-05-14 15:55] VITALS: BMI 31.7
--- NOTE | 2018-05-14 21:27 | HP ---
[facility] Rehab Assess/Revision - Admission History Admitted to Rehab from: [facility] [address] [place] Date of Admission to Rehab: 05/14/18 - Vital signs Vital Signs: Vital Signs Period Temp Pulse Resp BP Sys/Maradiaga Pulse Ox Last 24 Hr 98.6 F 68 20 120/79 - Findings Detox History & Physical reviewed: Yes Concur with findings: Yes Inpatient Rehab Admission - Initial Determination Are CD services needed?: Yes Free of communicable disease: Yes Not in need of hospitalization: Yes - Rehab Admission Criteria Previous failed treatment: Yes Poor recovery environment: Yes Comorbidities: Yes Lacks judgement: No Patient is meeting Inpatient Rehab admission criteria:: Yes
[2018-05-14] MEDS ORDERED: MENTHOL/PHENOL 1 EACH UD MM PRN (21:50)
[2018-05-14] MEDS ORDERED: LOPERAMIDE HCL 2 MG CAPSULE PO PRN (21:50)
[2018-05-14] MEDS ORDERED: MAG HYDROX/AL HYDROX/SIMETH 30 ML UNIT-DOSE CUP PO PRN (21:50)
[2018-05-14] MEDS ORDERED: MAGNESIUM CITRATE 300 ML BOTTLE PO PRN (21:50)
[2018-05-14] MEDS ORDERED: hydrOXYzine PAMOATE 50 MG CAPSULE (FP) PO PRN (21:50)
[2018-05-14] MEDS ORDERED: ACETAMINOPHEN 325 MG TABLET (FP) PO PRN (21:50)
[2018-05-14] MEDS ORDERED: MAGNESIUM HYDROX 2400MG/30ML ORAL SUSPENSION 30 ML CUP PO PRN (21:50)
[2018-05-14] MEDS ORDERED: MELATONIN 5 MG TABLETS PO PRN (22:00)
[2018-05-14] MEDS: THIAMINE HCL 100 MG TABLET (FP) PO SCH (22:03)
--- NOTE | 2018-05-15 07:42 | HP ---
Psychiatrist Admission - Data Date of interview: 05/15/18 Admission source: 6N Identifying data: This is the first [facility] admission for this 57 years old single Black male, father of 5 children, unemployed with no source of income, domiciled Medical History: Significant for hypertension, chronic knee pain and past history of fracture of left ankle. Smokes 3 cigarettes daily Psychiatric History: Patient is somewhat hostile, negativistic and uncooperative with the interview. He denies history of previous psychiatric contact and claims that he was sleeping and conventional underwriter is disturbing his sleep.. However from previous admission to this facility in March [address] Boogie, he reported a history of psychiatric hospitalizations years ago. However, he could not recall names of institutions. He indicated at the time that he was seeing a psychiatrist, for medication management (depakote 1000 mg/ day + lithium 900 mg/day) at the [facility] in [facility] ad he was diagnosed with Bipolar Disorder. He denied history of suicide attempts. He was prescribed depakote 500 mg po HS by Dr Boogie. Currently he reports feeling fine and sleeping fairly well Vital Signs: Vital Signs - 24 hr 05/14/18 05/15/18 05/15/18 14:59 00:30 03:30 Temperature 98.6 F Pulse Rate 68 Respiratory 20 20 18 Rate Blood Pressure 120/79 05/15/18 07:00 Temperature 98.4 F Pulse Rate 59 L Respiratory 18 Rate Blood Pressure 146/80 Allergies/Adverse Reactions: Allergies Allergy/AdvReac Type Severity Reaction Status Date / Time Pork/Porcine Containing Allergy Severe Hives Verified 05/09/18 11:11 Products No Known Drug Allergies Allergy Verified 05/09/18 11:11 Date of last physical exam: 05/09/18 Concur with the findings of this exam: Yes - Substance Abuse/Tx History Hx Alcohol Use: Yes Hx Substance Use: Yes Substance Use Type: Alcohol (Started drinking alcohol at age 14, consumes 2 pints of vodka daily. Last drank on 05/08/18), Cocaine (Started smoking crack cocaineat age 36, consumes $300-400 worth daily. Last smoked on 05/08/18), Heroin (Started using heroin at age 56, consumes 3-4 bags 3-6 times weekly. Last used on 05/08/18) Hx Substance Use Treatment: Yes (2 previous inpt detox @ [facility]. First inpt rehab admissionm) Mental Status Exam - Mental Status Exam Alert and Oriented to: Time, Place, Person Cognitive Function: Fair Patient Appearance: Well Groomed Mood: Irritable Speech Pattern: Clear Voice Loudness: Normal Thought Process: Intact Thought Disorder: Not Present Hallucinations: Denies Suicidal Ideation: Denies Homicidal Ideation: Denies Insight/Judgement: Fair Sleep: Fair Appetite: Fair Muscle strength/Tone: Normal Gait/Station: Normal Psychiatric Findings - Problem List ([place] 1, 2,3) (1) Alcohol dependence Current Visit: Yes Status: Acute (2) Opioid dependence Current Visit: No Status: Acute Qualifiers: Substance use status: uncomplicated Qualified Code(s): F11.20 - Opioid dependence, uncomplicated (3) Cocaine dependence Current Visit: Yes Status: Acute (4) Nicotine dependence Current Visit: No Status: Chronic Qualifiers: (5) Bipolar disorder Current Visit: No Status: Chronic Comment: Self-report.On medications : valproate + lithium.Patient sees psychiatrist at [facility] in [facility]. (6) Substance induced mood disorder Current Visit: Yes Status: Acute (7) Hypertension Current Visit: Yes Status: Chronic Qualifiers: Hypertension type: essential hypertension Qualified Code(s): I10 - Essential (primary) hypertension - Initial Treatment Plan Initial Treatment Plan: 1) Start Depakote 500 mg po BID. 2) Monitor progress
[2018-05-15] MEDS: PRENATAL VITAMINS W/ FOLIC ACID TABLET (FP) PO SCH (10:10)
[2018-05-15] MEDS: ENALAPRIL MALEATE 10 MG TABLET (FP) PO SCH (10:10)
[2018-05-15] MEDS: DIVALPROEX SODIUM 500 MG TABLET E.C. PO SCH ×2 (10:43→21:51)
[2018-05-15] MEDS: THIAMINE HCL 100 MG TABLET (FP) PO SCH (21:51)
[2018-05-16] MEDS: DIVALPROEX SODIUM 500 MG TABLET E.C. PO SCH ×2 (10:02→21:53)
[2018-05-16] MEDS: ENALAPRIL MALEATE 10 MG TABLET (FP) PO SCH (10:03)
[2018-05-16] MEDS: PRENATAL VITAMINS W/ FOLIC ACID TABLET (FP) PO SCH (11:03)
[2018-05-16] MEDS: IBUPROFEN 400 MG TABLET (FP) PO PRN (11:04)
--- NOTE | 2018-05-16 16:03 | PN ---
S Progress Note Note: Psychiatric nurse practitioner note: Patient has been refusing depakote 500mg BID. States he does not take depakote and is requesting the medication be discontinued. Depakote discontinued.
[2018-05-16] MEDS: THIAMINE HCL 100 MG TABLET (FP) PO SCH (21:53)
[2018-05-17] MEDS: DIVALPROEX SODIUM 500 MG TABLET E.C. PO SCH ×2 (10:34→22:05)
[2018-05-17] MEDS: PRENATAL VITAMINS W/ FOLIC ACID TABLET (FP) PO SCH (10:34)
[2018-05-17] MEDS: ENALAPRIL MALEATE 10 MG TABLET (FP) PO SCH (10:35)
[2018-05-17] MEDS: IBUPROFEN 400 MG TABLET (FP) PO PRN (10:36)
[2018-05-17] MEDS: THIAMINE HCL 100 MG TABLET (FP) PO SCH (22:06)
[2018-05-18] MEDS: ENALAPRIL MALEATE 10 MG TABLET (FP) PO SCH (10:06)
[2018-05-18] MEDS: PRENATAL VITAMINS W/ FOLIC ACID TABLET (FP) PO SCH (10:06)
[2018-05-18] MEDS: DIVALPROEX SODIUM 500 MG TABLET E.C. PO SCH ×2 (10:06→21:43)
[2018-05-18] MEDS: THIAMINE HCL 100 MG TABLET (FP) PO SCH (21:43)
[2018-05-19] MEDS: PRENATAL VITAMINS W/ FOLIC ACID TABLET (FP) PO SCH (10:18)
[2018-05-19] MEDS: ENALAPRIL MALEATE 10 MG TABLET (FP) PO SCH (10:18)
[2018-05-19] MEDS: DIVALPROEX SODIUM 500 MG TABLET E.C. PO SCH ×2 (10:18→21:51)
[2018-05-19] MEDS: THIAMINE HCL 100 MG TABLET (FP) PO SCH (21:51)
[2018-05-20] MEDS: DIVALPROEX SODIUM 500 MG TABLET E.C. PO SCH ×2 (11:41→22:02)
[2018-05-20] MEDS: ENALAPRIL MALEATE 10 MG TABLET (FP) PO SCH (11:43)
[2018-05-20] MEDS: PRENATAL VITAMINS W/ FOLIC ACID TABLET (FP) PO SCH (11:43)
[2018-05-20] MEDS: THIAMINE HCL 100 MG TABLET (FP) PO SCH (22:02)
[2018-05-21] MEDS: DIVALPROEX SODIUM 500 MG TABLET E.C. PO SCH ×2 (11:13→22:53)
[2018-05-21] MEDS: PRENATAL VITAMINS W/ FOLIC ACID TABLET (FP) PO SCH (11:14)
[2018-05-21] MEDS: ENALAPRIL MALEATE 10 MG TABLET (FP) PO SCH (11:14)
[2018-05-21] MEDS: TOLNAFTATE 1% CREAM 15 GM TUBE TP SCH ×2 (14:25→22:53)
[2018-05-21] MEDS: THIAMINE HCL 100 MG TABLET (FP) PO SCH (22:53)
[2018-05-22] MEDS: PRENATAL VITAMINS W/ FOLIC ACID TABLET (FP) PO SCH (10:06)
[2018-05-22] MEDS: DIVALPROEX SODIUM 500 MG TABLET E.C. PO SCH ×2 (10:06→22:39)
[2018-05-22] MEDS: TOLNAFTATE 1% CREAM 15 GM TUBE TP SCH ×2 (10:06→22:39)
[2018-05-22] MEDS: ENALAPRIL MALEATE 10 MG TABLET (FP) PO SCH (10:06)
[2018-05-22] MEDS: THIAMINE HCL 100 MG TABLET (FP) PO SCH (22:39)
[2018-05-23] MEDS ORDERED: P-EPHED 60MG/TRIPROLIDI 2.5MG TABLET PO PRN (07:29)
[2018-05-23] MEDS: PRENATAL VITAMINS W/ FOLIC ACID TABLET (FP) PO SCH (10:29)
[2018-05-23] MEDS: ENALAPRIL MALEATE 10 MG TABLET (FP) PO SCH (10:29)
[2018-05-23] MEDS: TOLNAFTATE 1% CREAM 15 GM TUBE TP SCH ×2 (10:30→22:12)
[2018-05-23] MEDS: DIVALPROEX SODIUM 500 MG TABLET E.C. PO SCH ×2 (10:30→22:12)
[2018-05-23] MEDS: THIAMINE HCL 100 MG TABLET (FP) PO SCH (22:12)
[2018-05-24] MEDS: DIVALPROEX SODIUM 500 MG TABLET E.C. PO SCH ×2 (10:21→22:07)
[2018-05-24] MEDS: PRENATAL VITAMINS W/ FOLIC ACID TABLET (FP) PO SCH (10:22)
[2018-05-24] MEDS: ENALAPRIL MALEATE 10 MG TABLET (FP) PO SCH (10:22)
[2018-05-24] MEDS: TOLNAFTATE 1% CREAM 15 GM TUBE TP SCH ×2 (10:23→22:07)
[2018-05-24] MEDS: THIAMINE HCL 100 MG TABLET (FP) PO SCH (22:07)
[2018-05-25] MEDS: DIVALPROEX SODIUM 500 MG TABLET E.C. PO SCH ×2 (10:50→22:32)
[2018-05-25] MEDS: ENALAPRIL MALEATE 10 MG TABLET (FP) PO SCH (10:50)
[2018-05-25] MEDS: PRENATAL VITAMINS W/ FOLIC ACID TABLET (FP) PO SCH (10:53)
[2018-05-25] MEDS: TOLNAFTATE 1% CREAM 15 GM TUBE TP SCH ×2 (10:53→22:32)
[2018-05-25] MEDS: THIAMINE HCL 100 MG TABLET (FP) PO SCH (22:33)
[2018-05-26] MEDS: PRENATAL VITAMINS W/ FOLIC ACID TABLET (FP) PO SCH (10:19)
[2018-05-26] MEDS: ENALAPRIL MALEATE 10 MG TABLET (FP) PO SCH (10:19)
[2018-05-26] MEDS: DIVALPROEX SODIUM 500 MG TABLET E.C. PO SCH ×2 (10:19→22:15)
[2018-05-26] MEDS: TOLNAFTATE 1% CREAM 15 GM TUBE TP SCH ×2 (10:20→22:15)
[2018-05-26] MEDS: THIAMINE HCL 100 MG TABLET (FP) PO SCH (22:15)
[2018-05-27] MEDS: PRENATAL VITAMINS W/ FOLIC ACID TABLET (FP) PO SCH (10:50)
[2018-05-27] MEDS: ENALAPRIL MALEATE 10 MG TABLET (FP) PO SCH (10:50)
[2018-05-27] MEDS: TOLNAFTATE 1% CREAM 15 GM TUBE TP SCH ×2 (10:50→22:01)
[2018-05-27] MEDS: DIVALPROEX SODIUM 500 MG TABLET E.C. PO SCH ×2 (10:50→22:00)
[2018-05-27] MEDS: THIAMINE HCL 100 MG TABLET (FP) PO SCH (22:01)
[2018-05-28] MEDS: DIVALPROEX SODIUM 500 MG TABLET E.C. PO SCH ×2 (10:43→22:04)
[2018-05-28] MEDS: ENALAPRIL MALEATE 10 MG TABLET (FP) PO SCH (10:43)
[2018-05-28] MEDS: PRENATAL VITAMINS W/ FOLIC ACID TABLET (FP) PO SCH (10:44)
[2018-05-28] MEDS: TOLNAFTATE 1% CREAM 15 GM TUBE TP SCH ×2 (10:44→22:04)
[2018-05-28] MEDS: THIAMINE HCL 100 MG TABLET (FP) PO SCH (22:04)
[2018-05-29] MEDS: ENALAPRIL MALEATE 10 MG TABLET (FP) PO SCH (10:31)
[2018-05-29] MEDS: PRENATAL VITAMINS W/ FOLIC ACID TABLET (FP) PO SCH (10:31)
[2018-05-29] MEDS: TOLNAFTATE 1% CREAM 15 GM TUBE TP SCH ×2 (10:32→22:21)
[2018-05-29] MEDS: DIVALPROEX SODIUM 500 MG TABLET E.C. PO SCH ×2 (10:32→22:21)
[2018-05-29] MEDS: THIAMINE HCL 100 MG TABLET (FP) PO SCH (22:22)
[2018-05-30] MEDS: DIVALPROEX SODIUM 500 MG TABLET E.C. PO SCH ×2 (11:11→22:21)
[2018-05-30] MEDS: ENALAPRIL MALEATE 10 MG TABLET (FP) PO SCH (11:11)
[2018-05-30] MEDS: PRENATAL VITAMINS W/ FOLIC ACID TABLET (FP) PO SCH (11:11)
[2018-05-30] MEDS: TOLNAFTATE 1% CREAM 15 GM TUBE TP SCH ×2 (11:12→22:21)
[2018-05-30] MEDS: THIAMINE HCL 100 MG TABLET (FP) PO SCH (22:21)
[2018-05-31] MEDS: PRENATAL VITAMINS W/ FOLIC ACID TABLET (FP) PO SCH (10:36)
[2018-05-31] MEDS: ENALAPRIL MALEATE 10 MG TABLET (FP) PO SCH (10:36)
[2018-05-31] MEDS: DIVALPROEX SODIUM 500 MG TABLET E.C. PO SCH ×2 (10:36→22:21)
[2018-05-31] MEDS: TOLNAFTATE 1% CREAM 15 GM TUBE TP SCH ×2 (10:37→22:21)
[2018-05-31] MEDS: THIAMINE HCL 100 MG TABLET (FP) PO SCH (22:21)
[2018-06-01] MEDS: DIVALPROEX SODIUM 500 MG TABLET E.C. PO SCH ×2 (10:17→22:10)
[2018-06-01] MEDS: PRENATAL VITAMINS W/ FOLIC ACID TABLET (FP) PO SCH (10:18)
[2018-06-01] MEDS: TOLNAFTATE 1% CREAM 15 GM TUBE TP SCH ×2 (10:18→22:10)
[2018-06-01] MEDS: ENALAPRIL MALEATE 10 MG TABLET (FP) PO SCH (10:18)
[2018-06-01] MEDS: THIAMINE HCL 100 MG TABLET (FP) PO SCH (22:10)
[2018-06-02] MEDS: TOLNAFTATE 1% CREAM 15 GM TUBE TP SCH ×2 (10:25→22:08)
[2018-06-02] MEDS: PRENATAL VITAMINS W/ FOLIC ACID TABLET (FP) PO SCH (10:25)
[2018-06-02] MEDS: ENALAPRIL MALEATE 10 MG TABLET (FP) PO SCH (10:25)
[2018-06-02] MEDS: DIVALPROEX SODIUM 500 MG TABLET E.C. PO SCH ×2 (10:25→22:07)
[2018-06-02] MEDS: THIAMINE HCL 100 MG TABLET (FP) PO SCH (22:08)
[2018-06-03] MEDS: PRENATAL VITAMINS W/ FOLIC ACID TABLET (FP) PO SCH (11:18)
[2018-06-03] MEDS: DIVALPROEX SODIUM 500 MG TABLET E.C. PO SCH ×2 (11:19→21:56)
[2018-06-03] MEDS: TOLNAFTATE 1% CREAM 15 GM TUBE TP SCH ×2 (11:19→21:56)
[2018-06-03] MEDS: ENALAPRIL MALEATE 10 MG TABLET (FP) PO SCH (12:17)
[2018-06-03] MEDS: THIAMINE HCL 100 MG TABLET (FP) PO SCH (21:56)
[2018-06-04 06:50] VITALS: BP 124/70; PULSE 59; TEMP 97.6
--- NOTE | 2018-06-04 09:33 | PN ---
Psychiatric Progress Note Vital Signs: Vital Signs Period Temp Pulse Resp BP Sys/Maradiaga Pulse Ox Last 24 Hr 97.6 F 59-79 -18 124-147/70-71 Date of Session: 06/04/18 Chief Complaint:: Discharge note HPI: Patient addressing Alcohol, Opioid and Cocaine Dependence comorbid with Nicotine Dependence, Bipolar Disorder and substance-Induced Mood Disorder ROS: HTN were medically managed Current Medications: Active Medications Generic Name Dose Route Start Last Admin Trade Name Freq PRN Reason Stop Dose Admin Acetaminophen 650 mg 05/14/18 21:50 Tylenol - PO Q4H PRN FEVER Al Hydroxide/Mg Hydroxide 30 ml 05/14/18 21:50 Mylanta Oral Suspension - PO Q6H PRN DYSPEPSIA Divalproex Sodium 500 mg 05/15/18 10:30 06/03/18 21:56 Depakote - PO Not Given BID ADONAY Enalapril Maleate 20 mg 05/15/18 10:00 06/03/18 12:17 Vasotec - PO 20 mg DAILY ADONAY Administration Eucalyptus/Menthol/Phenol/Sorbitol 1 each 05/14/18 21:50 Cepastat Lozenge - MM Q4H PRN SORE THROAT Hydroxyzine Pamoate 50 mg 05/14/18 21:50 Vistaril - PO Q4H PRN AGITATION Ibuprofen 400 mg 05/14/18 21:50 05/17/18 10:36 Motrin - PO 400 mg Q6H PRN Administration Pain Level 4-6 Loperamide HCl 4 mg 05/14/18 21:50 Imodium - PO Q6H PRN DIARRHEA Magnesium Citrate 300 ml 05/14/18 21:50 Citroma - PO Q48H PRN CONSTIPATION Magnesium Hydroxide 30 ml 05/14/18 21:50 Milk Of Magnesia - PO DAILY PRN CONSTIPATION Melatonin 5 mg 05/14/18 22:00 Melatonin PO HS PRN INSOMNIA Multivit/Folic Acid/Iron 1 tab 05/15/18 10:00 06/03/18 11:18 Vitamins (Sjr) - PO 1 tab DAILY ADONAY Administration Pseudoephedrine/Triprolidine 1 combo 05/23/18 07:29 Actifed - PO Q6H PRN NASAL CONGESTION Thiamine HCl 100 mg 05/14/18 22:00 06/03/18 21:56 Vitamin B1 - PO Not Given HS ADONAY Tolnaftate 1 applic 05/21/18 14:20 06/03/18 21:56 Tinactin 1% Cream - TP Not Given BID ADONAY Current Side Effect: No Lab tests ordered: Yes Lab tests reviewed: Yes Provider note:: Patient has completed this program today. He has met his treatment goals and will continue to address his issues in outpatient treatment at [facility] at [address] [place] [address]. Told blog writer that from his participation in this program, he has learned the importance of surrounding himself with a sober support network in order to maintain abstinence. He is stable for discharge today Total face to face time:: 35 Mental Status Exam - Mental Status Exam Alert and Oriented to: Time, Place, Person Cognitive Function: Fair Patient Appearance: Well Groomed Mood: Hopeful, Euthymic Affect: Appropriate Patient Behavior: Cooperative Speech Pattern: Clear Thought Process: Intact Thought Disorder: Not Present Hallucinations: Denies Suicidal Ideation: Denies Homicidal Ideation: Denies Insight/Judgement: Fair Sleep: Fair Appetite: Good Muscle strength/Tone: Normal Gait/Station: Normal Psychiatric Treatment Plan - Problem List (1) Alcohol dependence Current Visit: Yes (2) Opioid dependence Current Visit: No Qualifiers: Substance use status: uncomplicated Qualified Code(s): F11.20 - Opioid dependence, uncomplicated (3) Cocaine dependence Current Visit: Yes (4) Nicotine dependence Current Visit: No Qualifiers: (5) Bipolar disorder Current Visit: No Comment: Self-report.On medications : valproate + lithium.Patient sees psychiatrist at [facility] in [facility]. (6) Substance induced mood disorder Current Visit: Yes (7) Hypertension Current Visit: Yes Qualifiers: Hypertension type: essential hypertension Qualified Code(s): I10 - Essential (primary) hypertension Initial treatment plan: Patient is discharged today and referred to [facility] for outpatient treatment
[2018-06-04] MEDS: PRENATAL VITAMINS W/ FOLIC ACID TABLET (FP) PO SCH (10:06)
[2018-06-04] MEDS: DIVALPROEX SODIUM 500 MG TABLET E.C. PO SCH (10:07)
[2018-06-04] MEDS: ENALAPRIL MALEATE 10 MG TABLET (FP) PO SCH (10:07)
[2018-06-04] MEDS: TOLNAFTATE 1% CREAM 15 GM TUBE TP SCH (10:07)
--- NOTE | 2018-06-04 10:10 | PN ---
[facility] Progress Note Note: REHAB COMPLETED. ALERT O X 3. PT REPORTS HE HAS PMD(DOES NOT REMEMBER HIS DOCTOR 'S NAME) AT [facility] [address] [facility]. Vital Signs 06/04/18 06/04/18 03:27 06:50 Temperature 97.6 F Pulse Rate 59 L Respiratory 18 18 Rate Blood Pressure 124/70 NAD PLAN:FOLLOW UP0 WITH PMD AT [place], [place]. FOLLOW UP WITH AFTERCARE AT [facility] PROGRAM.
== END 2018-06-04 10:15 | disposition home or self-care (01) | DRG 772 ==
LOC: YASAS 14:58 → Y5N 14:59
PROVIDERS: ADMIT Psychiatry & Neurology Psychiatry; ATTEND Psychiatry & Neurology Psychiatry
PROC: HZ42ZZZ Group Counseling for Substance Abuse Treatment, Cognitive-Behavioral (ICD-10-PCS; principal; 2018-05-14)
DX: F11.20 Opioid dependence, uncomplicated (principal); F10.20 Alcohol dependence, uncomplicated; F14.20 Cocaine dependence, uncomplicated; F17.210 Nicotine dependence, cigarettes, uncomplicated; F19.24 Other psychoactive substance dependence with psychoactive substance-induced mood disorder; F31.9 Bipolar disorder, unspecified; I10 Essential (primary) hypertension

== ENCOUNTER 2021-09-12 18:56 | Inpatient (IN) | payer BC ==
[2021-09-12 19:40] VITALS: BMI 26.6
[2021-09-12] MEDS ORDERED: hydrOXYzine PAMOATE 25 MG CAPSULE (FP) PO PRN (21:13)
[2021-09-12] MEDS ORDERED: NICOTINE POLACRILEX 2 MG GUM BC PRN (21:13)
[2021-09-12] MEDS ORDERED: MAGNESIUM HYDROX 2400MG/30ML ORAL SUSPENSION 30 ML CUP PO PRN (21:13)
[2021-09-12] MEDS ORDERED: MELATONIN 5 MG TABLETS PO PRN (21:13)
[2021-09-12] MEDS ORDERED: MENTHOL/PHENOL 1 EACH UD MM PRN (21:13)
[2021-09-12] MEDS ORDERED: ACETAMINOPHEN 325 MG TABLET (FP) PO PRN (21:13)
[2021-09-12] MEDS ORDERED: guaiFENesin 200 MG/10 ML 10 ML UNIT-DOSE CUPS PO PRN (21:13)
[2021-09-12] MEDS ORDERED: MAG HYDROX/AL HYDROX/SIMETH 30 ML UNIT-DOSE CUP PO PRN (21:13)
[2021-09-12] MEDS ORDERED: P-EPHED 60MG/TRIPROLIDI 2.5MG TABLET PO PRN (21:13)
[2021-09-12] MEDS ORDERED: LOPERAMIDE HCL 2 MG CAPSULE PO PRN (21:13)
[2021-09-12] MEDS ORDERED: MAGNESIUM CITRATE 300 ML BOTTLE PO PRN (21:13)
[2021-09-12] MEDS ORDERED: IBUPROFEN 400 MG TABLET (FP) PO PRN (21:13)
[2021-09-13] MEDS: THIAMINE HCL 100 MG TABLET (FP) PO SCH (06:03)
[2021-09-13] MEDS ORDERED: cloNIDine HCL 0.1 MG TABLET PO ONE (06:44)
[2021-09-13] MEDS: ENALAPRIL MALEATE 10 MG TABLET PO SCH (11:12)
[2021-09-13] MEDS: PRENATAL VITAMINS W/ FOLIC ACID TABLET (FP) PO SCH (11:12)
[2021-09-13 15:28] LABS: HEMATOCRIT 38.6 % (35.4-49); HEMOGLOBIN 12.8 GM/dL (11.7-16.9); MCH 29.2 pg (25.7-33.7); MCHC 33.1 g/dl (32.0-35.9); MEAN CELL VOLUME 88.4 fl (80-96); MEAN PLT VOLUME 8.8 fl (7.5-11.1); PLATELET COUNT 244 10^3/uL (134-434); RBC 4.37 M/mm3 (4.00-5.60); RDW 12.8 % (11.9-15.9); WHITE BLOOD COUNT 10.5 K/mm3 (4.0-10.0)
[2021-09-13 15:41] LABS: ALBUMIN 3.4 g/dl (3.4-5.0); BLOOD UREA NITROGEN 17.6 mg/dL (7-18)
[2021-09-13 15:45] LABS: BILIRUBIN,TOTAL 0.4 mg/dL (0.2-1)
[2021-09-14] MEDS: THIAMINE HCL 100 MG TABLET (FP) PO SCH ×2 (00:31→23:52)
[2021-09-14] MEDS: cloNIDine HCL 0.1 MG TABLET PO PRN ×2 (07:37→23:53)
[2021-09-14] MEDS: PRENATAL VITAMINS W/ FOLIC ACID TABLET (FP) PO SCH (10:16)
[2021-09-14] MEDS: ENALAPRIL MALEATE 10 MG TABLET PO SCH (10:17)
[2021-09-14] MEDS ORDERED: ENALAPRIL MALEATE 10 MG TABLET PO ONE (15:53)
[2021-09-14] MEDS: NAPROXEN 375 MG TABLET PO PRN (23:51)
[2021-09-15] MEDS: NAPROXEN 375 MG TABLET PO PRN (10:35)
[2021-09-15] MEDS: PRENATAL VITAMINS W/ FOLIC ACID TABLET (FP) PO SCH (10:35)
[2021-09-15] MEDS: ENALAPRIL MALEATE 10 MG TABLET PO SCH (10:35)
[2021-09-15 18:40] LABS: PH,URINE 7.5 (5.0-8.0); URINE APPEARANCE CLEAR; URINE BILIRUBIN NEGATIVE (NEGATIVE); URINE COLOR YELLOW; URINE GLUCOSE (UA) NEGATIVE (NEGATIVE); URINE KETONE NEGATIVE (NEGATIVE); URINE LEUK ESTERASE NEGATIVE (NEGATIVE); URINE NITRITE NEGATIVE (NEGATIVE); URINE PROTEIN NEGATIVE (NEGATIVE); URINE UROBILINOGEN 0.2 mg/dL (0.2-1.0)
[2021-09-15] MEDS: THIAMINE HCL 100 MG TABLET (FP) PO SCH (22:43)
[2021-09-16 08:09] LABS: SARS-CoV-2 NAA Not Detected (Not Detected)
[2021-09-16] MEDS: NAPROXEN 375 MG TABLET PO PRN (09:40)
[2021-09-16] MEDS: ENALAPRIL MALEATE 10 MG TABLET PO SCH (09:40)
[2021-09-16] MEDS: PRENATAL VITAMINS W/ FOLIC ACID TABLET (FP) PO SCH (09:40)
[2021-09-16] MEDS: THIAMINE HCL 100 MG TABLET (FP) PO SCH (23:06)
[2021-09-17] MEDS: ENALAPRIL MALEATE 10 MG TABLET PO SCH (10:09)
[2021-09-17] MEDS: PRENATAL VITAMINS W/ FOLIC ACID TABLET (FP) PO SCH (10:10)
[2021-09-17] MEDS: NAPROXEN 375 MG TABLET PO PRN (10:11)
[2021-09-17] MEDS: COLLOIDAL OATMEAL 1 BAR EACH TP PRN (12:27)
[2021-09-17] MEDS: cloNIDine HCL 0.1 MG TABLET PO PRN ×2 (12:33→21:32)
[2021-09-17] MEDS: THIAMINE HCL 100 MG TABLET (FP) PO SCH (21:31)
[2021-09-18] MEDS: PRENATAL VITAMINS W/ FOLIC ACID TABLET (FP) PO SCH (10:00)
[2021-09-18] MEDS: NAPROXEN 375 MG TABLET PO PRN ×2 (10:00→21:13)
[2021-09-18] MEDS: ENALAPRIL MALEATE 10 MG TABLET PO SCH (10:00)
[2021-09-18] MEDS: THIAMINE HCL 100 MG TABLET (FP) PO SCH (21:12)
[2021-09-19] MEDS: cloNIDine HCL 0.1 MG TABLET PO PRN (06:18)
[2021-09-19] MEDS: ENALAPRIL MALEATE 10 MG TABLET PO SCH (10:35)
[2021-09-19] MEDS: PRENATAL VITAMINS W/ FOLIC ACID TABLET (FP) PO SCH (10:35)
[2021-09-19] MEDS: THIAMINE HCL 100 MG TABLET (FP) PO SCH (21:46)
[2021-09-19] MEDS: NAPROXEN 375 MG TABLET PO PRN (21:49)
[2021-09-20] MEDS: cloNIDine HCL 0.1 MG TABLET PO PRN (08:21)
[2021-09-20] MEDS: NAPROXEN 375 MG TABLET PO PRN (08:23)
[2021-09-20] MEDS: ENALAPRIL MALEATE 10 MG TABLET PO SCH (09:04)
[2021-09-20] MEDS: PRENATAL VITAMINS W/ FOLIC ACID TABLET (FP) PO SCH (09:05)
[2021-09-20] MEDS: TOLNAFTATE 1% CREAM 15 GM TUBE TP SCH ×2 (13:59→23:09)
[2021-09-20] MEDS: THIAMINE HCL 100 MG TABLET (FP) PO SCH (23:09)
[2021-09-21] MEDS: ENALAPRIL MALEATE 10 MG TABLET PO SCH (09:19)
[2021-09-21] MEDS: TOLNAFTATE 1% CREAM 15 GM TUBE TP SCH ×2 (09:19→22:07)
[2021-09-21] MEDS: PRENATAL VITAMINS W/ FOLIC ACID TABLET (FP) PO SCH (09:19)
[2021-09-21] MEDS: NAPROXEN 375 MG TABLET PO PRN (09:21)
[2021-09-21] MEDS: THIAMINE HCL 100 MG TABLET (FP) PO SCH (22:07)
[2021-09-22] MEDS: cloNIDine HCL 0.1 MG TABLET PO PRN (06:32)
[2021-09-22] MEDS: ENALAPRIL MALEATE 10 MG TABLET PO SCH (10:09)
[2021-09-22] MEDS: PRENATAL VITAMINS W/ FOLIC ACID TABLET (FP) PO SCH (10:09)
[2021-09-22] MEDS: COLLOIDAL OATMEAL 1 BAR EACH TP PRN (10:09)
[2021-09-22] MEDS: TOLNAFTATE 1% CREAM 15 GM TUBE TP SCH ×2 (10:10→21:58)
[2021-09-22] MEDS: NAPROXEN 375 MG TABLET PO PRN (10:11)
[2021-09-22] MEDS: THIAMINE HCL 100 MG TABLET (FP) PO SCH (21:58)
[2021-09-23] MEDS: cloNIDine HCL 0.1 MG TABLET PO PRN (06:22)
[2021-09-23] MEDS: NAPROXEN 375 MG TABLET PO PRN (10:18)
[2021-09-23] MEDS: PRENATAL VITAMINS W/ FOLIC ACID TABLET (FP) PO SCH (10:18)
[2021-09-23] MEDS: ENALAPRIL MALEATE 10 MG TABLET PO SCH (10:19)
[2021-09-23] MEDS: TOLNAFTATE 1% CREAM 15 GM TUBE TP SCH ×2 (10:21→21:40)
[2021-09-23] MEDS: THIAMINE HCL 100 MG TABLET (FP) PO SCH (21:40)
[2021-09-24] MEDS: cloNIDine HCL 0.1 MG TABLET PO PRN (06:28)
[2021-09-24] MEDS: NAPROXEN 375 MG TABLET PO PRN (10:18)
[2021-09-24] MEDS: ENALAPRIL MALEATE 10 MG TABLET PO SCH (10:18)
[2021-09-24] MEDS: PRENATAL VITAMINS W/ FOLIC ACID TABLET (FP) PO SCH (10:19)
[2021-09-24] MEDS: TOLNAFTATE 1% CREAM 15 GM TUBE TP SCH ×2 (10:19→21:40)
[2021-09-24] MEDS: THIAMINE HCL 100 MG TABLET (FP) PO SCH (21:40)
[2021-09-25] MEDS: cloNIDine HCL 0.1 MG TABLET PO PRN (07:42)
[2021-09-25] MEDS: TOLNAFTATE 1% CREAM 15 GM TUBE TP SCH ×2 (10:13→22:21)
[2021-09-25] MEDS: ENALAPRIL MALEATE 10 MG TABLET PO SCH (10:13)
[2021-09-25] MEDS: PRENATAL VITAMINS W/ FOLIC ACID TABLET (FP) PO SCH (10:14)
[2021-09-25] MEDS: NAPROXEN 375 MG TABLET PO PRN (10:14)
[2021-09-25] MEDS: THIAMINE HCL 100 MG TABLET (FP) PO SCH (22:21)
[2021-09-26] MEDS: cloNIDine HCL 0.1 MG TABLET PO PRN (06:17)
[2021-09-26] MEDS: PRENATAL VITAMINS W/ FOLIC ACID TABLET (FP) PO SCH (10:07)
[2021-09-26] MEDS: TOLNAFTATE 1% CREAM 15 GM TUBE TP SCH ×2 (10:07→21:38)
[2021-09-26] MEDS: NAPROXEN 375 MG TABLET PO PRN (10:08)
[2021-09-26] MEDS: ENALAPRIL MALEATE 10 MG TABLET PO SCH (10:08)
[2021-09-26] MEDS: THIAMINE HCL 100 MG TABLET (FP) PO SCH (21:38)
[2021-09-27] MEDS: cloNIDine HCL 0.1 MG TABLET PO PRN (07:20)
[2021-09-27] MEDS: ENALAPRIL MALEATE 10 MG TABLET PO SCH (09:47)
[2021-09-27] MEDS: NAPROXEN 375 MG TABLET PO PRN (09:47)
[2021-09-27] MEDS: PRENATAL VITAMINS W/ FOLIC ACID TABLET (FP) PO SCH (09:48)
[2021-09-27] MEDS: TOLNAFTATE 1% CREAM 15 GM TUBE TP SCH ×2 (09:49→21:52)
[2021-09-27] MEDS: THIAMINE HCL 100 MG TABLET (FP) PO SCH (21:52)
[2021-09-28] MEDS: cloNIDine HCL 0.1 MG TABLET PO PRN (06:15)
[2021-09-28] MEDS: TOLNAFTATE 1% CREAM 15 GM TUBE TP SCH ×2 (10:20→21:57)
[2021-09-28] MEDS: PRENATAL VITAMINS W/ FOLIC ACID TABLET (FP) PO SCH (10:20)
[2021-09-28] MEDS: ENALAPRIL MALEATE 10 MG TABLET PO SCH (10:21)
[2021-09-28] MEDS: NAPROXEN 375 MG TABLET PO PRN (10:21)
[2021-09-28] MEDS: THIAMINE HCL 100 MG TABLET (FP) PO SCH (21:57)
[2021-09-29] MEDS: cloNIDine HCL 0.1 MG TABLET PO PRN (06:35)
[2021-09-29] MEDS: ENALAPRIL MALEATE 10 MG TABLET PO SCH (10:27)
[2021-09-29] MEDS: TOLNAFTATE 1% CREAM 15 GM TUBE TP SCH ×2 (10:27→23:37)
[2021-09-29] MEDS: NAPROXEN 375 MG TABLET PO PRN (10:28)
[2021-09-29] MEDS: PRENATAL VITAMINS W/ FOLIC ACID TABLET (FP) PO SCH (10:28)
[2021-09-29 21:58] VITALS: TEMP 97.3
[2021-09-29] MEDS: THIAMINE HCL 100 MG TABLET (FP) PO SCH (23:38)
[2021-09-30] MEDS: cloNIDine HCL 0.1 MG TABLET PO PRN (06:16)
[2021-09-30 09:35] VITALS: BP 145/77; PULSE 80
== END 2021-09-30 09:12 | disposition home or self-care (01) | DRG 772 ==
LOC: YASAS 18:56 → Y5N 09-13 03:49 → Y3E 09-14 12:34
PROVIDERS: ADMIT Allergy & Immunology; ATTEND Allergy & Immunology
PROC: HZ42ZZZ Group Counseling for Substance Abuse Treatment, Cognitive-Behavioral (ICD-10-PCS; principal; 2021-09-13)
DX: F11.20 Opioid dependence, uncomplicated (principal); F10.20 Alcohol dependence, uncomplicated; F14.20 Cocaine dependence, uncomplicated; F12.10 Cannabis abuse, uncomplicated; F17.210 Nicotine dependence, cigarettes, uncomplicated; F31.9 Bipolar disorder, unspecified; I10 Essential (primary) hypertension
CPT/HCPCS: 36415; 80053; 81003; 85027; 86780; C9803-CS; J0735; U0003; U0005

== ENCOUNTER 2022-01-13 12:01 | Inpatient (IN) | payer BC ==
[2022-01-13 12:38] VITALS: BP 165/91; PULSE 115; TEMP 96.9; BMI 28.4
[2022-01-13] MEDS ORDERED: IBUPROFEN 600 MG TABLET (FP) PO PRN (13:36)
[2022-01-13] MEDS ORDERED: MAGNESIUM CITRATE 300 ML BOTTLE PO PRN (13:36)
[2022-01-13] MEDS ORDERED: MAGNESIUM HYDROX 2400MG/30ML ORAL SUSPENSION 30 ML CUP PO PRN (13:36)
[2022-01-13] MEDS ORDERED: ONDANSETRON *ODT* 4 MG TABLET SL PRN (13:36)
[2022-01-13] MEDS ORDERED: LOPERAMIDE HCL 2 MG CAPSULE PO PRN (13:36)
[2022-01-13] MEDS ORDERED: ACETAMINOPHEN 325 MG TABLET (FP) PO PRN ×2 (13:36)
[2022-01-13] MEDS ORDERED: DICYCLOMINE HCL 10 MG CAPSULE PO PRN (13:36)
[2022-01-13] MEDS ORDERED: MAG HYDROX/AL HYDROX/SIMETH 30 ML UNIT-DOSE CUP PO PRN (13:36)
[2022-01-13] MEDS ORDERED: IBUPROFEN 400 MG TABLET (FP) PO PRN (13:36)
[2022-01-13] MEDS ORDERED: METHOCARBAMOL 500 MG TABLET PO PRN (13:36)
[2022-01-13] MEDS ORDERED: BISMUTH SUBSALICYLATE 524 MG/30 ML PO PRN (13:36)
[2022-01-13] MEDS ORDERED: BENZOCAINE/MENTHOL (CHLORASEPTIC ) LOZENGE MM PRN (13:36)
[2022-01-13] MEDS ORDERED: hydrOXYzine PAMOATE 25 MG CAPSULE (FP) PO SCH (14:00)
[2022-01-13] MEDS ORDERED: THIAMINE HCL 100 MG TABLET (FP) PO SCH (22:00)
[2022-01-13] MEDS ORDERED: MELATONIN 5 MG TABLETS PO SCH (22:00)
[2022-01-14] MEDS ORDERED: PRENATAL VITAMINS W/ FOLIC ACID TABLET (FP) PO SCH (10:00)
[2022-01-14] MEDS ORDERED: NICOTINE 7 MG/24 HOURS TOPICAL PATCH TD SCH (10:00)
== END 2022-01-13 15:20 | disposition left against medical advice (07) | DRG 770 ==
LOC: YASAS 12:01 → UNDOADMIN 13:38 → Y6N 13:38 → UNDODISIN 15:20
PROVIDERS: ADMIT Allergy & Immunology; ATTEND Surgery
PROC: HZ2ZZZZ Detoxification Services for Substance Abuse Treatment (ICD-10-PCS; principal; 2022-01-13)
DX: F10.230 Alcohol dependence with withdrawal, uncomplicated (principal); F14.20 Cocaine dependence, uncomplicated; F12.20 Cannabis dependence, uncomplicated; F17.210 Nicotine dependence, cigarettes, uncomplicated
CPT/HCPCS: C9803-CS; U0003; U0005